=== PATIENT | female | born 1985 | race Caucasian/White ===

== ENCOUNTER 2016-07-10 22:11 | Inpatient (IN) | payer OTHER ==
[~2016-07-10] VITALS: Ht 167.6 cm; Wt 108.1 kg
[2016-07-10] MEDS: MONTELUKAST 10 MG TAB PO SCH (18:00)
[2016-07-10] MEDS: MELOXICAM (MOBIC) 7.5 MG TAB PO SCH (21:00)
[2016-07-10] MEDS: hydrOXYzine 50 MG TAB PO SCH (21:00)
[~2016-07-10 22:11] MED LIST: ADV500INH INH; CELE40TA PO; GABA-283 PO; PRIL20CA9 PO; TOPR50TA PO; TRAZ150T14 PO; VIST50CA PO
[2016-07-10] MEDS ORDERED: GABAPENTIN 300 MG CAP PO ONE (22:45)
[2016-07-10] MEDS ORDERED: FUROSEMIDE 20 MG TAB PO ONE (22:45)
[2016-07-10] MEDS ORDERED: HYDR-4274 PO (22:46)
[2016-07-10] MEDS ORDERED: ALBU17IN INH (22:46)
[2016-07-10] MEDS ORDERED: ENBR50IN4 SUBQ (22:46)
[2016-07-10] MEDS ORDERED: GABA800T PO (22:46)
[2016-07-10] MEDS ORDERED: CLON1TAB PO (22:46)
[2016-07-10] MEDS ORDERED: TRAZ150T14 PO (22:46)
[2016-07-10] MEDS ORDERED: FURO20TA2 PO (22:46)
[2016-07-10] MEDS ORDERED: MONT10TA2 PO (22:46)
[2016-07-10] MEDS ORDERED: MELO7.5T6 PO (22:46)
[2016-07-10] MEDS ORDERED: LORazepam 1 MG TAB PO STA (23:43)
[2016-07-10] MEDS ORDERED: CLON0.5T PO (23:56)
[2016-07-11] MEDS ORDERED: MOM 30ML SUSPENSION UDC PO PRN
[2016-07-11] MEDS ORDERED: MAALOX 30 ML SUSP *UDC PO PRN
[2016-07-11 01:17] VITALS: BP 126/68
[2016-07-11] MEDS: traZODone 50 MG TAB PO SCH ×2 (03:05→20:06)
[2016-07-11] MEDS: NICOTINE POLACRILEX 2 MG GUM PO PRN ×5 (03:36→20:10)
[2016-07-11 06:00] VITALS: BP 133/81
[2016-07-11] MEDS: ADVAIR DISKUS 500/50 INH PWD INH SCH ×2 (08:21→20:06)
[2016-07-11] MEDS: MELOXICAM (MOBIC) 7.5 MG TAB PO SCH ×2 (08:22→20:07)
[2016-07-11] MEDS: hydrOXYzine 50 MG TAB PO SCH ×3 (08:22→20:07)
[2016-07-11] MEDS: FUROSEMIDE 20 MG TAB PO SCH (08:22)
[2016-07-11] MEDS: GABAPENTIN 400 MG CAP PO SCH ×3 (08:22→20:07)
[2016-07-11] MEDS: OMEPRAZOLE 20 MG CAP PO SCH (08:22)
[2016-07-11] MEDS: METOPROLOL SUCC (TopROL XL) 50MG **XL** TAB PO SCH (08:23)
[2016-07-11] MEDS ORDERED: FUROSEMIDE 20 MG TAB PO ONE (09:00)
[2016-07-11] MEDS ORDERED: OMEPRAZOLE 20 MG CAP PO ONE (09:00)
[2016-07-11] MEDS ORDERED: GABAPENTIN 300 MG CAP PO SCH (09:00)
[2016-07-11] MEDS ORDERED: GABAPENTIN 300 MG CAP PO ONE (09:00)
[2016-07-11] MEDS ORDERED: METOPROLOL SUCC (TopROL XL) 50MG **XL** TAB PO ONE (09:00)
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
[2016-07-11] MEDS: OLANZapine 5 MG TAB PO PRN ×2 (12:14→20:07)
[2016-07-11] MEDS: MONTELUKAST 10 MG TAB PO SCH (17:10)
[2016-07-11 18:00] VITALS: BP 126/57
[2016-07-11] MEDS: ACETAMINOPHEN TAB 650MG DOSE (2X325MG) PO PRN (22:03)
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
[2016-07-12 06:07] VITALS: BP 122/62
[2016-07-12] MEDS: ADVAIR DISKUS 500/50 INH PWD INH SCH ×2 (08:05→21:09)
[2016-07-12] MEDS: OMEPRAZOLE 20 MG CAP PO SCH (08:06)
[2016-07-12] MEDS: hydrOXYzine 50 MG TAB PO SCH ×3 (08:06→21:09)
[2016-07-12] MEDS: METOPROLOL SUCC (TopROL XL) 50MG **XL** TAB PO SCH (08:06)
[2016-07-12] MEDS: GABAPENTIN 400 MG CAP PO SCH ×3 (08:06→21:09)
[2016-07-12] MEDS: MELOXICAM (MOBIC) 7.5 MG TAB PO SCH ×2 (08:06→21:09)
[2016-07-12] MEDS: FUROSEMIDE 20 MG TAB PO SCH (08:07)
[2016-07-12] MEDS: ACETAMINOPHEN TAB 650MG DOSE (2X325MG) PO PRN ×2 (08:10→18:04)
[2016-07-12] MEDS: NICOTINE POLACRILEX 2 MG GUM PO PRN ×4 (08:10→21:09)
[2016-07-12] MEDS ORDERED: BACITRACIN OINT 30GM TOP SCH (09:00)
[2016-07-12] MEDS ORDERED: MUPIROCIN 2% OINT 22 GM TUBE TOP PRN (09:30)
[2016-07-12] MEDS: OLANZapine 5 MG TAB PO PRN (15:24)
[2016-07-12] MEDS: MONTELUKAST 10 MG TAB PO SCH (17:10)
[2016-07-12] MEDS: ALBUTEROL 90 MCG/ACT 8GM HFA INHALER INH PRN (18:07)
--- NOTE | 2016-07-12 18:22 | MHIPNPDOC ---
[facility] Progress Note Progress Note DATE OF SERVICE: 07/12/16 HISTORY: Patient is 30-year-old female with history of depression, anxiety, alcohol and marijuana abuse who recently relapsed on alcohol and was transferred from [facility] after she cut her forearm and had been experiencing suicidal ideation. Patient has history of suicide attempt age 14, SIB, says she has not engaged in SIB behavior 3 years until recent episode. Patient indicates alcohol relapse, suicidal thinking, and SIB were preceded by girlfriend of 2 years breaking up with her. Patient has history of prior psychiatric admission and has been receiving outpatient psychiatric treatment through [facility], has participated in rehabilitation treatment 2. [place] Machine Operator met with patient today to assess treatment progress on inpatient unit. Patient rates current anxiety level is 9/10, depression 4/10, denies suicidal and homicidal ideation, denies auditory and visual hallucinations, denies urge to engage in self-injurious behavior. Patient indicates she remains saddened and anxious related to recent termination of relationship noting, "everything reminds me of her," states she has been attending groups, indicates appetite is stable, reports improvement in energy level since admission to unit, denies challenges with concentration and focus. Patient states she struggles with sleep , denies nightmares symptoms, states trazodone helps and denies medication side effects. Patient makes request for increased Librium dose to address "tremor," however, only observed while patient is making request for increase in benzodiazepine dose. Patient is aware she has medication available to her to address symptoms of intermittent anxiety if needed, has been taking intermittently with good effect reported. Patient reports 4/10 pain related to psoriatic arthritis, presents with no signs of acute distress at time of interaction. Patient indicates she has a history of the following diagnoses: Borderline personality disorder, MDD, panic disorder Patient indicates she has lengthy history of psychotropic medication trials, notes the following: Klonopin - has been taking outpatient for panic disorder Celexa - states did best on Celexa but cannot take due to unknown "heart condition," information not found in chart, nursing has been asked to request labs, health history, and EKG from [facility] Effexor - "can't take, bad affect" Prozac - tremor Paxil - "hyper" Depakote - "allergic" Seroquel - memory problems BuSpar, Tenex, Luvox, Serzone - unknown VITAL SIGNS: See below. Patient indicates she has a "heart condition," is asymptomatic, denies chest pain, palpitations, shortness of breath, dizziness, headache NEW TEST RESULTS: Nursing has been asked to request lab work and EKG results from [facility], per EMR lab work was completed at [facility], and patient indicates she underwent EKG the [facility]. MEDICAL HISTORY: Psoriatic arthritis, fibromyalgia, asthma, GERD, IBS, hypertension, self-inflicted wound to forearm, abrasion bilateral to buttocks. Patient indicates she may have UTI, reported urinary frequency and burning to ME who has requested urine culture. Urine culture pending EKG - awaiting [facility] results UDS - awaiting [facility], patient indicates not , notes not sexually active with males CURRENT MEDICATIONS: See below. MENTAL STATUS EXAMINATION: Patient is a 30-year old female, who is engageable, pleasant and cooperative, appears disheveled, dressed in hospital clothing, makes fair eye contact, ambulates with steady gait, appears stated age. Speech: Is of normal rate, rhythm, volume, spontaneous, coherent Language skills are intact Thought processes including: Linear, logical, goal-directed Thought content: Rational, logical, no tangentiality or paranoia noted no perseverative thinking Abstract reasoning, and computation: Appears intact Description of associations: Intact Description of abnormal or psychotic thoughts: Patient denies suicidal or homicidal thinking, denies auditory visual hallucinations, does not appear to be responding to internal stimuli, does not endorse bizarre or paranoid ideation , denies preoccupation with violence and/or obsessions Judgment: Poor Insight: Poor Orientation: A and O 3 Recent and remote memory: Appear intact Attention span and concentration: Appears adequate Language: Adequate Fund of knowledge: Adequate Mood: "I feel better than yesterday but I'm still anxious and sad." Patient appears depressed and anxious, no mood lability noted Affect: Blunted but brightens, congruent with mood DIAGNOSES: Unspecified depressive disorder, rule out MDD, rule out panic disorder, rule out personality disorder rule out substance-induced mood disorder , polysubstance use disorder ASSESSMENT: Patient appears to be adjusting to unit, is pleasant and cooperative , easily engaged, visible, socializing selectively with peers and staff. Patient is participating in unit programming. Patient is requesting medication to address symptoms of depression and anxiety, indicates she has trialed multiple medications but informs typewriter tester she has not taken Zoloft in past. Patient is in agreement with Zoloft trial in effort to reduce symptoms of anxiety and depression. Patient has made request for increased Librium dose, responds well to being informed that she would be monitored for need for dosing adjustment. Patient indicates balance of medication regimen remains generally effective and denies medication side effects. Patient denies current suicidal or homicidal ideation and verbalizes awareness of how to access supportive services on the unit if needed. Will monitor patient's response to medication and will monitor for medication side effects, will evaluate patient's safety, resolution of suicidal ideation and urge to engage in SIB, and discharge readiness. Patient indicates she had been living with her girlfriend prior to hospitalization, may be considering living with brother at time of discharge, adds she intends to return to [facility] for outpatient psychotherapy and medication management services. Recommendation was made for patient to consider participating in inpatient or outpatient substance abuse treatment, patient agrees to consider. MANAGEMENT PLAN: Initiate med trial Zoloft 25 mg po q am. Continue trazodone 150 mg po hs, hydroxyzine 50 mg po TID PRN, olanzapine 5 mg po q 6 hours PRN anxiety/agitation, and Librium 15 mg po BID with plan to taper and discontinue Maintain safety precautions Patient to attend groups and participate in unit programming to develop coping strategies Engage patient in discharge planning process and arrange meeting with support system to ensure safe discharge planning when appropriate Patient to follow up with PCM upon discharge TIME SPENT: 35 minutes. Vital Signs Vital Signs Date Time Temp Pulse Resp B/P (MAP) Pulse Ox O2 Delivery O2 Flow Rate FiO2 07/12/16 08:06 86 122/62 07/12/16 06:07 97.3 16 07/11/16 01:17 98 Room Air Current Medications Current Medications Acetaminophen (Tylenol Tab) 650 mg Q6HP PRN PO HEADACHE or DISCOMFORT Last administered on 07/12/16 08:10; Start 07/11/16 at 00:00; Stop 08/10/16 at 00:00 Al Hydrox/Mg Hydrox/Simethicone (Mylanta) 30 ml Q4HP PRN PO HEARTBURN/ INDIGESTION; Start 07/11/16 at 00:00; Stop 08/10/16 at 00:00 Albuterol Sulfate (Proventil, Ventolin Hfa) 2 puff Q6HP PRN INH SHORTNESS OF BREATH; Start 07/11/16 at 00:00; Stop 08/10/16 at 00:00 Bacitracin (Bacitracin Oint) apply to abrasion ... BID TOP Last administered on 07/12/16 08:11; Start 07/12/16 at 09:00; Stop 07/12/16 at 09:23; Status DC Chlordiazepoxide (Librium) 15 mg BID PO ; Start 07/10/16 at 21:00; Stop at 03:09; Status DC Chlordiazepoxide (Librium) 15 mg BID PO Last administered on 07/12/16 08:06; Start 07/11/16 at 09:00; Stop 07/18/16 at 08:59 Furosemide (Lasix) 10 mg DAILY PO Last administered on 07/12/16 08:07; Start 07/11/16 at 09:00; Stop 08/10/16 at 08:59 Gabapentin (Neurontin) 300 mg TID PO ; Start 07/11/16 at 09:00; Stop 07/11/16 at 09:00; Status DC Gabapentin (Neurontin) 800 mg TID PO Last administered on 07/12/16 15:24; Start 07/11/16 at 09:00; Stop 08/10/16 at 08:59 Home Med (Med Rec Complete!) ASDIRECTED XX ; Start 07/11/16 at 00:00; Stop at 00:03; Status DC Hydroxyzine HCl (Atarax) 50 mg TID PO Last administered on 07/12/16 15:24; Start 07/10/16 at 21:00; Stop 08/09/16 at 20:59 Lorazepam (Ativan) 1 mg STAT STAT PO Last administered on 07/10/16 23:47; Start 07/10/16 at 23:43; Stop 07/10/16 at 23:45; Status DC Magnesium Hydroxide (Milk Of Magnesia) 30 ml DAILYPRN PRN PO CONSTIPATION; Start 07/11/16 at 00:00; Stop 08/10/16 at 00:00 Meloxicam (Mobic) 7.5 mg BID PO Last administered on 07/12/16 08:06; Start at 21:00; Stop 08/09/16 at 20:59 Metoprolol Succinate (TopROL XL) 50 mg DAILY PO Last administered on 07/12/16 08:06; Start 07/11/16 at 09:00; Stop 08/10/16 at 08:59 Miscellaneous (Unresolved Patient Own Med Order) SEE LABEL COMMENTS UNRESOLVED XX ; Start 07/11/16 at 00:01; Stop 08/10/16 at 00:00 Montelukast Sodium (Singulair) 10 mg DAILY@1800 PO Last administered on 17:10; Start 07/10/16 at 18:00; Stop 08/09/16 at 17:59 Mupirocin (Bactroban 2% Ointment) Apply to bilateral buttocks BID PRN TOP REDNESS/IRRITATION; Start 07/12/16 at 09:30; Stop 08/11/16 at 09:29 Nicotine (Nicorette) 4 mg Q2HP PRN PO NICOTINE WITHDRAWAL Last administered on 07/12/16 15:27; Start 07/11/16 at 03:15; Stop 08/10/16 at 03:14 Olanzapine (ZyPREXA) 5 mg Q6HP PRN PO ANXIETY/AGITATION Last administered on 15:24; Start 07/11/16 at 00:00; Stop 08/10/16 at 00:00 Omeprazole (PriLOSEC) 20 mg DAILY PO Last administered on 07/12/16 08:06; Start 07/11/16 at 09:00; Stop 08/10/16 at 08:59 Patient Own Medication (Patient'S Own Med) 1 ea We@0900 SC ; Start 07/13/16 at 09:00; Stop 08/12/16 at 08:59; Status UNV Salmeterol Xinafoate/ Fluticasone (Advair Diskus 500/50) 1 puff BID INH Last administered on 07/12/16 08:05; Start 07/11/16 at 09:00; Stop 08/10/16 at 08:59 Trazodone HCl (Desyrel) 150 mg QHS PO Last administered on 07/11/16 20:06; Start 07/10/16 at 21:00; Stop 08/09/16 at 20:59 Allergies Coded Allergies: Valproic Acid (Verified Allergy, Severe, mouth/throat swelling, 07/10/16) Sulfa Antibiotics (Verified Allergy, Intermediate, body rash, 07/10/16) Vidya Aguirre July 12, 2016 18:22
[2016-07-12 18:23] VITALS: BP 129/89
[2016-07-12] MEDS: SERTRALINE HCL 25 MG TABLET PO SCH (18:53)
[2016-07-12] MEDS: traZODone 50 MG TAB PO SCH (23:40)
[2016-07-13 06:15] VITALS: BP 111/73
[2016-07-13] MEDS: ACETAMINOPHEN TAB 650MG DOSE (2X325MG) PO PRN ×3 (06:34→19:36)
[2016-07-13] MEDS: SERTRALINE HCL 25 MG TABLET PO SCH (08:11)
[2016-07-13] MEDS: METOPROLOL SUCC (TopROL XL) 50MG **XL** TAB PO SCH (08:11)
[2016-07-13] MEDS: ADVAIR DISKUS 500/50 INH PWD INH SCH ×2 (08:11→19:58)
[2016-07-13] MEDS: MELOXICAM (MOBIC) 7.5 MG TAB PO SCH ×2 (08:11→19:59)
[2016-07-13] MEDS: OMEPRAZOLE 20 MG CAP PO SCH (08:11)
[2016-07-13] MEDS: GABAPENTIN 400 MG CAP PO SCH ×3 (08:11→19:59)
[2016-07-13] MEDS: FUROSEMIDE 20 MG TAB PO SCH (08:12)
[2016-07-13] MEDS: hydrOXYzine 50 MG TAB PO SCH ×3 (08:12→19:59)
[2016-07-13] MEDS: NICOTINE POLACRILEX 2 MG GUM PO PRN ×4 (08:12→23:12)
[2016-07-13] MEDS ORDERED: ETANERCEPT 50 MG/ML SC SCH (09:00)
--- NOTE | 2016-07-13 11:54 | MHIPNPDOC ---
[facility] Progress Note Progress Note DATE OF SERVICE: 07/13/16 HISTORY: Patient is 30-year-old female with history of depression, anxiety, alcohol and marijuana abuse who recently relapsed on alcohol and was transferred from [facility] after she cut her forearm and had been experiencing suicidal ideation. Patient has history of suicide attempt age 14, SIB, says she has not engaged in SIB behavior 3 years until recent episode. Patient indicates alcohol relapse, suicidal thinking, and SIB were preceded by girlfriend of 2 years breaking up with her. Patient has history of prior psychiatric admission and has been receiving outpatient psychiatric treatment through [facility], has participated in rehabilitation treatment 2. [employer] met with patient today to assess treatment progress on inpatient unit. Patient reports improvement to symptoms of anxiety and depression, rates current anxiety level as 3/10, depression 2/10, denies suicidal and homicidal ideation, denies auditory and visual hallucinations, denies urge to engage in self-injurious behavior. Patient reports improvement in mood, indicates today she realizes relationship with ex-girlfriend is "over, I'm not trying to contact her anymore, and I realize she needs to do what she needs to do." Patient indicates she has been journaling and connecting with peers on unit, reports appetite is stable, denies challenges with concentration and focus, and reports improvement in energy level. Patient indicates sleep is "good, it's the first time in a long time I slept 8 hours," contrary to EMR which indicates 4.5 hours. Patient denies nightmares symptoms and denies nighttime ruminative thinking. Patient indicates Zoloft is helping to improve mood, denies symptoms of activation/hypomania/sisi, makes no request for increased Librium dose, presents with no indication of hand tremor today. Patient has been utilizing PRN medication to address symptoms of anxiety with good effect reported. Patient denies medication side effects. Patient presents with no signs of acute distress time of interaction. VITALS: See below NEW TEST RESULTS: No new results, review of [facility] records completed. [facility] labs indicated on 07/09/16 elevated WBC, RDW, MPV, low specific gravity. MEDICAL HISTORY: Psoriatic arthritis, fibromyalgia, asthma, GERD, IBS, hypertension, self-inflicted wound to forearm, abrasion bilateral to buttocks. Patient indicates she may have UTI, reported urinary frequency and burning to [place] who has requested urine culture. Urine culture pending 07/10/16 EKG sinus rhythm baseline wander and lead V2, normal ECG. Patient indicates she has history of "heart condition," is asymptomatic, denies symptoms of chest pain, dizziness, headache, shortness of breath, palpitations. UDS - completed 07/09/16 at [facility] negative HCG - completed 07/09/16 at [place] negative Patient indicates she has a "heart condition," is able to provide no additional information, denies history of definitive diagnosis, is asymptomatic, denies chest pain, palpitations, shortness of breath, dizziness, headache CURRENT MEDICATIONS: See below. MENTAL STATUS EXAMINATION: Patient is a 30-year old female, who is engageable, pleasant and cooperative, appears disheveled, dressed in hospital clothing, makes improved eye contact, ambulates with steady gait, appears stated age. Speech: Is of normal rate, rhythm, volume, spontaneous, coherent Language skills are intact Thought processes including: Linear, logical, goal-directed Thought content: Rational, logical, no tangentiality or paranoia noted no perseverative thinking Abstract reasoning, and computation: Appears intact Description of associations: Intact Description of abnormal or psychotic thoughts: Patient denies suicidal or homicidal thinking, denies auditory visual hallucinations, does not appear to be responding to internal stimuli, does not endorse bizarre or paranoid ideation , denies preoccupation with violence and/or obsessions Judgment: Poor Insight: Poor, some improvement verbalized Orientation: A and O 3 Recent and remote memory: Appear intact Attention span and concentration: Appears adequate Language: Adequate Fund of knowledge: Adequate Mood: "I feel a little better today." Patient appears depressed and anxious, no mood lability noted Affect: Blunted but brightens, congruent with mood DIAGNOSES: Unspecified depressive disorder, rule out MDD, rule out panic disorder, rule out personality disorder rule out substance-induced mood disorder , polysubstance use disorder ASSESSMENT: Patient appears to be adjusting to unit, is pleasant and cooperative , easily engaged, visible, socializing selectively with peers and staff. Patient is participating in unit programming. Patient indicates Zoloft seems to be helping reduce symptoms of anxiety and depression, has now taken 2 doses, denies symptoms of activation/sisi, denies medication side effects, is agreeable to dose increase in effort to further reduce symptoms of anxiety and depression. Patient reports notable improvement to sleep, makes no request for increased Librium dose, is agreeable to taper initiation. Patient indicates balance of medication regimen remains generally effective and denies medication side effects. Patient denies current suicidal or homicidal ideation and verbalizes awareness of how to access supportive services on the unit if needed. Will continue to monitor patient's response to medication and will monitor for medication side effects, will evaluate patient's safety, resolution of suicidal ideation and urge to engage in SIB, and discharge readiness. Patient indicates she plans to live with her twin brother when discharged from the hospital, reiterates today she intends to return to [facility] for outpatient psychotherapy and medication management services. Patient notes today she is willing to participate in outpatient substance abuse treatment in [place]. MANAGEMENT PLAN: Increase Zoloft to 50 mg po q am. Continue trazodone 150 mg po hs, hydroxyzine 50 mg po TID PRN, and olanzapine 5 mg po q 6 hours PRN anxiety/ agitation. Reduce Librium to 10 mg po BID tomorrow with plan to continue taper as tolerated by patient and discontinue as patient stabilizes on antidepressant Maintain safety precautions Patient to attend groups and participate in unit programming to develop coping strategies Engage patient in discharge planning process and arrange meeting with support system to ensure safe discharge planning when appropriate Patient to follow up with PCM upon discharge TIME SPENT: 35 minutes. Vital Signs Vital Signs Date Time Temp Pulse Resp B/P (MAP) Pulse Ox O2 Delivery O2 Flow Rate FiO2 07/13/16 08:11 87 111/73 07/13/16 06:15 98.7 18 07/11/16 01:17 98 Room Air Current Medications Current Medications Acetaminophen (Tylenol Tab) 650 mg Q6HP PRN PO HEADACHE or DISCOMFORT Last administered on 07/13/16 06:34; Start 07/11/16 at 00:00; Stop 08/10/16 at 00:00 Al Hydrox/Mg Hydrox/Simethicone (Mylanta) 30 ml Q4HP PRN PO HEARTBURN/ INDIGESTION; Start 07/11/16 at 00:00; Stop 08/10/16 at 00:00 Albuterol Sulfate (Proventil, Ventolin Hfa) 2 puff Q6HP PRN INH SHORTNESS OF BREATH Last administered on 07/12/16 18:07; Start 07/11/16 at 00:00; Stop 08/10 at 00:00 Bacitracin (Bacitracin Oint) apply to abrasion ... BID TOP Last administered on 07/12/16 08:11; Start 07/12/16 at 09:00; Stop 07/12/16 at 09:23; Status DC Chlordiazepoxide (Librium) 15 mg BID PO ; Start 07/10/16 at 21:00; Stop at 03:09; Status DC Chlordiazepoxide (Librium) 15 mg BID PO Last administered on 07/13/16 08:11; Start 07/11/16 at 09:00; Stop 07/18/16 at 08:59 Furosemide (Lasix) 10 mg DAILY PO Last administered on 07/13/16 08:12; Start 07/11/16 at 09:00; Stop 08/10/16 at 08:59 Gabapentin (Neurontin) 300 mg TID PO ; Start 07/11/16 at 09:00; Stop 07/11/16 at 09:00; Status DC Gabapentin (Neurontin) 800 mg TID PO Last administered on 07/13/16 08:11; Start 07/11/16 at 09:00; Stop 08/10/16 at 08:59 Home Med (Med Rec Complete!) ASDIRECTED XX ; Start 07/11/16 at 00:00; Stop at 00:03; Status DC Hydroxyzine HCl (Atarax) 50 mg TID PO Last administered on 07/13/16 08:12; Start 07/10/16 at 21:00; Stop 08/09/16 at 20:59 Lorazepam (Ativan) 1 mg STAT STAT PO Last administered on 07/10/16 23:47; Start 07/10/16 at 23:43; Stop 07/10/16 at 23:45; Status DC Magnesium Hydroxide (Milk Of Magnesia) 30 ml DAILYPRN PRN PO CONSTIPATION; Start 07/11/16 at 00:00; Stop 08/10/16 at 00:00 Meloxicam (Mobic) 7.5 mg BID PO Last administered on 07/13/16 08:11; Start at 21:00; Stop 08/09/16 at 20:59 Metoprolol Succinate (TopROL XL) 50 mg DAILY PO Last administered on 07/13/16 08:11; Start 07/11/16 at 09:00; Stop 08/10/16 at 08:59 Miscellaneous (Unresolved Patient Own Med Order) SEE LABEL COMMENTS UNRESOLVED XX ; Start 07/11/16 at 00:01; Stop 08/10/16 at 00:00 Montelukast Sodium (Singulair) 10 mg DAILY@1800 PO Last administered on 17:10; Start 07/10/16 at 18:00; Stop 08/09/16 at 17:59 Mupirocin (Bactroban 2% Ointment) Apply to bilateral buttocks BID PRN TOP REDNESS/IRRITATION Last administered on 07/13/16 08:15; Start 07/12/16 at 09:30 ; Stop 08/11/16 at 09:29 Nicotine (Nicorette) 4 mg Q2HP PRN PO NICOTINE WITHDRAWAL Last administered on 07/13/16 08:12; Start 07/11/16 at 03:15; Stop 08/10/16 at 03:14 Olanzapine (ZyPREXA) 5 mg Q6HP PRN PO ANXIETY/AGITATION Last administered on 15:24; Start 07/11/16 at 00:00; Stop 08/10/16 at 00:00 Omeprazole (PriLOSEC) 20 mg DAILY PO Last administered on 07/13/16 08:11; Start 07/11/16 at 09:00; Stop 08/10/16 at 08:59 Patient Own Medication (Patient'S Own Med) 1 ea We@0900 SC ; Start 07/13/16 at 09:00; Stop 08/12/16 at 08:59; Status UNV Salmeterol Xinafoate/ Fluticasone (Advair Diskus 500/50) 1 puff BID INH Last administered on 07/13/16 08:11; Start 07/11/16 at 09:00; Stop 08/10/16 at 08:59 Sertraline HCl (Zoloft) 25 mg QAM PO Last administered on 07/13/16 08:11; Start 07/12/16 at 09:00; Stop 08/11/16 at 08:59 Trazodone HCl (Desyrel) 150 mg QHS PO Last administered on 07/12/16t 23:40; Start 07/10/16 at 21:00; Stop 08/09/16 at 20:59 Allergies Coded Allergies: Valproic Acid (Verified Allergy, Severe, mouth/throat swelling, 07/10/16) Sulfa Antibiotics (Verified Allergy, Intermediate, body rash, 07/10/16) Vidya Aguirre July 13, 2016 11:54
[2016-07-13] MEDS: OLANZapine 5 MG TAB PO PRN (13:33)
[2016-07-13] MEDS: MONTELUKAST 10 MG TAB PO SCH (17:17)
[2016-07-13 18:54] VITALS: BP 106/70
[2016-07-13] MEDS: traZODone 50 MG TAB PO SCH (23:11)
[2016-07-13] MEDS: LIDOCAINE 5% (LIDODERM) PATCH TD SCH (23:16)
[2016-07-14] MEDS: ACETAMINOPHEN TAB 650MG DOSE (2X325MG) PO PRN ×2 (05:34→11:48)
[2016-07-14 06:17] VITALS: BP 121/56
[2016-07-14] MEDS: ADVAIR DISKUS 500/50 INH PWD INH SCH ×2 (08:25→21:50)
[2016-07-14] MEDS: FUROSEMIDE 20 MG TAB PO SCH (08:25)
[2016-07-14] MEDS: SERTRALINE HCL 50 MG TAB PO SCH (08:26)
[2016-07-14] MEDS: GABAPENTIN 400 MG CAP PO SCH ×3 (08:26→21:51)
[2016-07-14] MEDS: OMEPRAZOLE 20 MG CAP PO SCH (08:26)
[2016-07-14] MEDS: hydrOXYzine 50 MG TAB PO SCH ×3 (08:26→21:51)
[2016-07-14] MEDS: MELOXICAM (MOBIC) 7.5 MG TAB PO SCH ×2 (08:26→21:51)
[2016-07-14] MEDS: METOPROLOL SUCC (TopROL XL) 50MG **XL** TAB PO SCH (08:26)
[2016-07-14] MEDS: **NOTE PATIENT COMMENT** MISC XX SCH (08:26)
[2016-07-14] MEDS: NICOTINE POLACRILEX 2 MG GUM PO PRN ×3 (08:29→21:50)
[2016-07-14] MEDS: OLANZapine 5 MG TAB PO PRN ×2 (14:30→21:51)
[2016-07-14] MEDS: MONTELUKAST 10 MG TAB PO SCH (17:07)
[2016-07-14 18:00] VITALS: BP 124/68
[2016-07-14] MEDS: LIDOCAINE 5% (LIDODERM) PATCH TD SCH (21:51)
[2016-07-14] MEDS: traZODone 50 MG TAB PO SCH (21:51)
--- NOTE | 2016-07-14 22:15 | MHIPNPDOC ---
[facility] Progress Note Progress Note DATE OF SERVICE: 07/14/16 HISTORY: Patient is 30-year-old female with history of depression, anxiety, alcohol and marijuana abuse who recently relapsed on alcohol and was transferred from [facility] after she cut her forearm and had been experiencing suicidal ideation. Patient has history of suicide attempt age 14, SIB, says she has not engaged in SIB behavior 3 years until recent episode. Patient indicates alcohol relapse, suicidal thinking, and SIB were preceded by girlfriend of 2 years breaking up with her. Patient has history of prior psychiatric admission and has been receiving outpatient psychiatric treatment through [facility], has participated in rehabilitation treatment 2. [employer] met with patient today to assess treatment progress on inpatient unit. Patient reports improvement to symptoms of anxiety and depression, rates current anxiety level as 4/10 related to "thinking about my ask," depression / 10, denies suicidal and homicidal ideation, denies auditory and visual hallucinations, denies urge to engage in self-injurious behavior. Patient reports improvement in mood which she attributes to antidepressant, denies medication side effects. Patient reports appetite is stable, denies challenges with concentration and focus, and reports improvement in energy level. Patient describes sleep as "good," on further to EMR, states she has been sleeping well and denies nightmares symptoms and denies nighttime ruminative thinking. Patient indicates Zoloft continues to help improve mood, denies symptoms of activation/hypomania/sisi. Patient remains in agreement with a Librium taper, presents with no indication of hand tremor today. Patient has been utilizing PRN medication to address symptoms of anxiety with good effect reported. Patient denies medication side effects. Patient presents with no signs of acute distress time of interaction. VITALS: See below NEW TEST RESULTS: No new results, review of [facility] records completed. [facility] labs indicated on 07/09/16 elevated WBC, RDW, MPV, low specific gravity. MEDICAL HISTORY: Psoriatic arthritis, fibromyalgia, asthma, GERD, IBS, hypertension, self-inflicted wound to forearm, abrasion bilateral to buttocks. Patient indicates she may have UTI, reported urinary frequency and burning to [place] who has requested urine culture. Urine culture pending 07/10/16 EKG sinus rhythm baseline wander and lead V2, normal ECG. Patient indicates she has history of "heart condition," is asymptomatic, denies symptoms of chest pain, dizziness, headache, shortness of breath, palpitations. UDS - completed 07/09/16 at [facility] negative HCG - completed 07/09/16 at [place] [facility] negative Patient indicates she has a "heart condition," is able to provide no additional information, denies history of definitive diagnosis, is asymptomatic, denies chest pain, palpitations, shortness of breath, dizziness, headache CURRENT MEDICATIONS: See below. MENTAL STATUS EXAMINATION: Patient is a 30-year old female, who is engageable, pleasant and cooperative, appears less disheveled, dressed in hospital clothing, makes improved eye contact, ambulates with steady gait, appears stated age. Speech: Is of normal rate, rhythm, volume, spontaneous, coherent Language skills are intact Thought processes including: Linear, logical, goal-directed Thought content: Rational, logical, no tangentiality or paranoia noted no perseverative thinking Abstract reasoning, and computation: Appears intact Description of associations: Intact Description of abnormal or psychotic thoughts: Patient denies suicidal or homicidal thinking, denies auditory visual hallucinations, does not appear to be responding to internal stimuli, does not endorse bizarre or paranoid ideation , denies preoccupation with violence and/or obsessions Judgment: Limited, some improvement during treatment Insight: Fair, some improvement verbalized Orientation: A and O 3 Recent and remote memory: Appear intact Attention span and concentration: Appears adequate Language: Adequate Fund of knowledge: Adequate Mood: "I'm feeling a little better today, less depressed but I'm still anxious. " Patient appears less depressed and anxious, no mood lability noted Affect: Blunted but brightens, congruent with mood DIAGNOSES: Unspecified depressive disorder, rule out MDD, rule out panic disorder, rule out personality disorder rule out substance-induced mood disorder , polysubstance use disorder ASSESSMENT: Patient appears to be adjusting to unit, is pleasant and cooperative , easily engaged, visible, socializing selectively with peers and staff. Patient is participating in unit programming. Patient indicates Zoloft continues to help reduce symptoms of anxiety and depression, denies symptoms of activation/sisi, denies medication side effects. Patient reports notable improvement to sleep. Patient remains in agreement with Librium taper, reiterates today balance of medication regimen remains generally effective and denies medication side effects. Patient denies current suicidal or homicidal ideation and verbalizes awareness of how to access supportive services on the unit if needed. Will continue to monitor patient's response to medication and will monitor for medication side effects, will evaluate patient's safety, resolution of suicidal ideation and urge to engage in SIB, and discharge readiness. Patient indicates she plans to live with her twin brother when discharged from the hospital, reiterates today she intends to return to [facility] for outpatient psychotherapy and medication management services. Patient notes today she is willing to participate in outpatient substance abuse treatment in [place]. MANAGEMENT PLAN: Continue Zoloft to 50 mg po q am, trazodone 150 mg po hs, hydroxyzine 50 mg po TID PRN, and olanzapine 5 mg po q 6 hours PRN anxiety/ agitation. Reduce Librium to 5 mg po q and 10 mg po q hs with plan to continue taper as tolerated by patient and discontinue as patient stabilizes on antidepressant Maintain safety precautions Patient to attend groups and participate in unit programming to develop coping strategies Engage patient in discharge planning process and arrange meeting with support system to ensure safe discharge planning when appropriate Patient to follow up with PCM upon discharge TIME SPENT: 35 minutes. Vital Signs Vital Signs Date Time Temp Pulse Resp B/P (MAP) Pulse Ox O2 Delivery O2 Flow Rate FiO2 07/14/16 18:00 98.6 79 18 124/68 (86) 07/14/16 06:17 Room Air 07/11/16 01:17 98 Current Medications Current Medications Acetaminophen (Tylenol Tab) 650 mg Q6HP PRN PO HEADACHE or DISCOMFORT Last administered on 07/14/16 11:48; Start 07/11/16 at 00:00; Stop 08/10/16 at 00:00 Al Hydrox/Mg Hydrox/Simethicone (Mylanta) 30 ml Q4HP PRN PO HEARTBURN/ INDIGESTION; Start 07/11/16 at 00:00; Stop 08/10/16 at 00:00 Albuterol Sulfate (Proventil, Ventolin Hfa) 2 puff Q6HP PRN INH SHORTNESS OF BREATH Last administered on 07/12/16 18:07; Start 07/11/16 at 00:00; Stop 08/10 at 00:00 Bacitracin (Bacitracin Oint) apply to abrasion ... BID TOP Last administered on 07/12/16 08:11; Start 07/12/16 at 09:00; Stop 07/12/16 at 09:23; Status DC Chlordiazepoxide (Librium) 5 mg QAM PO ; Start 07/15/16 at 09:00; Stop 07/22/16 at 08:59 Chlordiazepoxide (Librium) 10 mg BID PO Last administered on 07/14/16 21:50; Start 07/14/16 at 09:00; Stop 07/14/16 at 22:04; Status DC Chlordiazepoxide (Librium) 10 mg QHS PO ; Start 07/15/16 at 21:00; Stop 07/21/16 at 08:59 Chlordiazepoxide (Librium) 15 mg BID PO ; Start 07/10/16 at 21:00; Stop at 03:09; Status DC Chlordiazepoxide (Librium) 15 mg BID PO Last administered on 07/13/16 19:59; Start 07/11/16 at 09:00; Stop 07/13/16 at 23:00; Status DC Furosemide (Lasix) 10 mg DAILY PO Last administered on 07/14/16 08:25; Start at 09:00; Stop 08/10/16 at 08:59 Gabapentin (Neurontin) 300 mg TID PO ; Start 07/11/16 at 09:00; Stop 07/11/16 at 09:00; Status DC Gabapentin (Neurontin) 800 mg TID PO Last administered on 07/14/16 21:51; Start 07/11/16 at 09:00; Stop 08/10/16 at 08:59 Home Med (Med Rec Complete!) ASDIRECTED XX ; Start 07/11/16 at 00:00; Stop at 00:03; Status DC Hydroxyzine HCl (Atarax) 50 mg TID PO Last administered on 07/14/16 21:51; Start 07/10/16 at 21:00; Stop 08/09/16 at 20:59 Lidocaine (Lidoderm Patch) 1 patch DAILY@2100 TD Last administered on 07/14/16 21:51; Start 07/13/16 at 21:00; Stop 08/12/16 at 20:59 Lorazepam (Ativan) 1 mg STAT STAT PO Last administered on 07/10/16 23:47; Start 07/10/16 at 23:43; Stop 07/10/16 at 23:45; Status DC Magnesium Hydroxide (Milk Of Magnesia) 30 ml DAILYPRN PRN PO CONSTIPATION; Start 07/11/16 at 00:00; Stop 08/10/16 at 00:00 Meloxicam (Mobic) 7.5 mg BID PO Last administered on 07/14/16 21:51; Start at 21:00; Stop 08/09/16 at 20:59 Metoprolol Succinate (TopROL XL) 50 mg DAILY PO Last administered on 07/14/16 08:26; Start 07/11/16 at 09:00; Stop 08/10/16 at 08:59 Miscellaneous (Unresolved Patient Own Med Order) SEE LABEL COMMENTS UNRESOLVED XX ; Start 07/11/16 at 00:01; Stop 08/10/16 at 00:00 Montelukast Sodium (Singulair) 10 mg DAILY@1800 PO Last administered on 17:07; Start 07/10/16 at 18:00; Stop 08/09/16 at 17:59 Mupirocin (Bactroban 2% Ointment) Apply to bilateral buttocks BID PRN TOP REDNESS/IRRITATION Last administered on 07/13/16 08:15; Start 07/12/16 at 09:30 ; Stop 08/11/16 at 09:29 Nicotine (Nicorette) 4 mg Q2HP PRN PO NICOTINE WITHDRAWAL Last administered on 07/14/16 21:50; Start 07/11/16 at 03:15; Stop 08/10/16 at 03:14 Non-Formulary Medication ( See Comment Field Below ) REMOVE LIDODERM PATCH DAILY@0900 XX Last administered on 07/14/16 08:26; Start 07/14/16 at 09:00; Stop 08/13/16 at 08:59 Olanzapine (ZyPREXA) 5 mg Q6HP PRN PO ANXIETY/AGITATION Last administered on 21:51; Start 07/11/16 at 00:00; Stop 08/10/16 at 00:00 Omeprazole (PriLOSEC) 20 mg DAILY PO Last administered on 07/14/16 08:26; Start 07/11/16 at 09:00; Stop 08/10/16 at 08:59 Patient Own Medication (Patient'S Own Med) 1 ea We@0900 SC ; Start 07/13/16 at 09:00; Stop 08/12/16 at 08:59; Status UNV Salmeterol Xinafoate/ Fluticasone (Advair Diskus 500/50) 1 puff BID INH Last administered on 07/14/16 21:50; Start 07/11/16 at 09:00; Stop 08/10/16 at 08:59 Sertraline HCl (Zoloft) 25 mg QAM PO Last administered on 07/13/16 08:11; Start 07/12/16 at 09:00; Stop 07/13/16 at 11:58; Status DC Sertraline HCl (Zoloft) 50 mg QAM PO Last administered on 07/14/16 08:26; Start 07/14/16 at 09:00; Stop 08/13/16 at 08:59 Trazodone HCl (Desyrel) 150 mg QHS PO Last administered on 07/14/16 21:51; Start 07/10/16 at 21:00; Stop 08/09/16 at 20:59 Allergies Coded Allergies: Valproic Acid (Verified Allergy, Severe, mouth/throat swelling, 07/10/16) Sulfa Antibiotics (Verified Allergy, Intermediate, body rash, 07/10/16) Vidya Aguirre Jul 14, 2016 22:15
[2016-07-15] MEDS: NICOTINE POLACRILEX 2 MG GUM PO PRN ×4 (01:48→20:11)
[2016-07-15] MEDS: ACETAMINOPHEN TAB 650MG DOSE (2X325MG) PO PRN ×3 (01:51→22:06)
[2016-07-15 06:00] VITALS: BP 123/62
[2016-07-15] MEDS: **NOTE PATIENT COMMENT** MISC XX SCH (08:36)
[2016-07-15] MEDS: hydrOXYzine 50 MG TAB PO SCH ×3 (08:40→20:11)
[2016-07-15] MEDS: OMEPRAZOLE 20 MG CAP PO SCH (08:40)
[2016-07-15] MEDS: MELOXICAM (MOBIC) 7.5 MG TAB PO SCH ×2 (08:40→20:11)
[2016-07-15] MEDS: SERTRALINE HCL 50 MG TAB PO SCH (08:40)
[2016-07-15] MEDS: GABAPENTIN 400 MG CAP PO SCH ×3 (08:41→20:11)
[2016-07-15] MEDS: METOPROLOL SUCC (TopROL XL) 50MG **XL** TAB PO SCH (08:42)
[2016-07-15] MEDS: FUROSEMIDE 20 MG TAB PO SCH (08:43)
[2016-07-15] MEDS: ADVAIR DISKUS 500/50 INH PWD INH SCH ×2 (08:46→20:10)
[2016-07-15] MEDS: OLANZapine 5 MG TAB PO PRN ×2 (12:33→22:05)
[2016-07-15 18:00] VITALS: BP 114/56
[2016-07-15] MEDS: MONTELUKAST 10 MG TAB PO SCH (18:11)
--- NOTE | 2016-07-15 19:07 | MHIPNPDOC ---
[facility] Progress Note Progress Note DATE OF SERVICE: 07/15/16 HISTORY: Patient is 30-year-old female with history of depression, anxiety, alcohol and marijuana abuse who recently relapsed on alcohol and was transferred from [facility] after she cut her forearm and had been experiencing suicidal ideation. Patient has history of suicide attempt age 14, SIB, says she has not engaged in SIB behavior 3 years until recent episode. Patient indicates alcohol relapse, suicidal thinking, and SIB were preceded by girlfriend of 2 years breaking up with her. Patient has history of prior psychiatric admission and has been receiving outpatient psychiatric treatment through [facility], has participated in rehabilitation treatment 2. Layboy Tender met with patient today to assess treatment progress on inpatient unit. Patient reports improvement to symptoms of anxiety and depression stating, "I feel better, almost happy, I haven't cried about my ex-girlfriend in a couple days now." Patient reports current anxiety level of 1/10, depression 1/10, denies suicidal and homicidal ideation, denies auditory and visual hallucinations, denies urge to engage in self-injurious behavior. Patient indicates Zoloft is helping to improve mood and she denies medication side effects. Patient states appetite is stable, denies challenges with concentration and focus, and reports improvement in energy level. Patient describes sleep as "good," contrary to EMR which patient states is an accurate, notes trazodone remains effective and she denies nightmares and ruminative thinking. Patient denies symptoms of activation/hypomania/sisi, remains in agreement with continuation of Librium taper. Patient has been made aware that if she becomes uncomfortable over weekend as result of Librium taper she may ask to meet with weekend provider to reevaluate taper needs. Patient has been utilizing anxiolytic medication to address symptoms of anxiety with good effect reported. Patient presents with no signs of acute distress time of interaction. VITALS: See below NEW TEST RESULTS: No new results, review of [facility] records completed. [facility] labs indicated on 07/09/16 elevated WBC, RDW, MPV, low specific gravity. MEDICAL HISTORY: Psoriatic arthritis, fibromyalgia, asthma, GERD, IBS, hypertension, self-inflicted wound to forearm, abrasion bilateral to buttocks. Patient indicates she may have UTI, reported urinary frequency and burning to PR who has requested urine culture. Urine culture pending 07/10/16 EKG sinus rhythm baseline wander and lead V2, normal ECG. Patient indicates she has history of "heart condition," is asymptomatic, denies symptoms of chest pain, dizziness, headache, shortness of breath, palpitations. UDS - completed 07/09/16 at [facility] [place] negative HCG - completed 07/09/16 at [place] negative Patient indicates she has a "heart condition," is able to provide no additional information, denies history of definitive diagnosis, is asymptomatic, denies chest pain, palpitations, shortness of breath, dizziness, headache CURRENT MEDICATIONS: See below. MENTAL STATUS EXAMINATION: Patient is a 30-year old female, who is engageable, pleasant and cooperative, appears less disheveled, dressed in hospital clothing, makes improved eye contact, ambulates with steady gait, appears stated age. Speech: Is of normal rate, rhythm, volume, spontaneous, coherent Language skills are intact Thought processes including: Linear, logical, goal-directed Thought content: Rational, logical, no tangentiality or paranoia noted no perseverative thinking Abstract reasoning, and computation: Appears intact Description of associations: Intact Description of abnormal or psychotic thoughts: Patient denies suicidal or homicidal thinking, denies auditory visual hallucinations, does not appear to be responding to internal stimuli, does not endorse bizarre or paranoid ideation , denies preoccupation with violence and/or obsessions Judgment: Fair, some improvement during treatment Insight: Fair, some improvement verbalized Orientation: A and O 3 Recent and remote memory: Appear intact Attention span and concentration: Appears adequate Language: Adequate Fund of knowledge: Adequate Mood: "I'm feeling better today, the medication is helping." Patient appears less depressed and less anxious, no mood lability noted Affect: Constricted, brightens at times, expresses humor, congruent with mood DIAGNOSES: Major depressive disorder, recurrent, moderate, polysubstance use disorder. Rule out panic disorder, rule out borderline personality disorder, rule out substance-induced mood disorder ASSESSMENT: Patient continues to adjust to unit, is more visible and engageable , is pleasant and cooperative, socializing more with staff and peers, participating in unit programming. Patient indicates Zoloft continues to help reduce symptoms of anxiety and depression, denies symptoms of activation/sisi , denies medication side effects. Patient reports notable improvement to sleep. Patient remains in agreement with Librium taper, reiterates today balance of medication regimen remains effective and denies medication side effects. Patient denies current suicidal or homicidal ideation and verbalizes awareness of how to access supportive services on the unit if needed. Will continue librium taper and continue to monitor patient's response to taper and medications, and will monitor for medication side effects. In addition, will evaluate patient's safety, resolution of suicidal ideation and urge to engage in SIB, and discharge readiness. Patient indicates she plans to live with her twin brother when discharged from the hospital, reiterates today she intends to return to [facility] for outpatient psychotherapy and medication management services. Patient notes today she is willing to participate in outpatient substance abuse treatment in [place]. MANAGEMENT PLAN: Continue Zoloft to 50 mg po q am, trazodone 150 mg po hs, hydroxyzine 50 mg po TID PRN, and olanzapine 5 mg po q 6 hours PRN anxiety/ agitation. Continue Librium taper as follows: Librium 5 mg po this am and Librium 10 mg po hs tonight. Librium 10 mg po hs on 07/16/16. Librium 5 mg po hs on 07/17/16, then stop if tolerated by patient. Patient to request to be seen by weekend provider if experiencing difficulty with Librium taper over weekend Maintain safety precautions Patient to attend groups and participate in unit programming to develop coping strategies Engage patient in discharge planning process and arrange meeting with support system to ensure safe discharge planning when appropriate Patient to follow up with PCM upon discharge TIME SPENT: 35 minutes. Vital Signs Vital Signs Date Time Temp Pulse Resp B/P (MAP) Pulse Ox O2 Delivery O2 Flow Rate FiO2 07/15/16 18:00 98.8 78 18 114/56 (75) 07/14/16 06:17 Room Air 07/11/16 01:17 98 Current Medications Current Medications Acetaminophen (Tylenol Tab) 650 mg Q6HP PRN PO HEADACHE or DISCOMFORT Last administered on 07/15/16t 10:38; Start 07/11/16 at 00:00; Stop 08/10/16 at 00:00 Al Hydrox/Mg Hydrox/Simethicone (Mylanta) 30 ml Q4HP PRN PO HEARTBURN/ INDIGESTION; Start 07/11/16 at 00:00; Stop 08/10/16 at 00:00 Albuterol Sulfate (Proventil, Ventolin Hfa) 2 puff Q6HP PRN INH SHORTNESS OF BREATH Last administered on 07/12/16 18:07; Start 07/11/16 at 00:00; Stop 08/10 at 00:00 Bacitracin (Bacitracin Oint) apply to abrasion ... BID TOP Last administered on 07/12/16 08:11; Start 07/12/16 at 09:00; Stop 07/12/16 at 09:23; Status DC Chlordiazepoxide (Librium) 5 mg QAM PO Last administered on 07/15/16 08:41; Start 07/15/16 at 09:00; Stop 07/15/16 at 18:45; Status DC Chlordiazepoxide (Librium) 5 mg QHS PO ; Start 07/17/16 at 21:00; Stop 07/17/16 at 22:00 Chlordiazepoxide (Librium) 10 mg BID PO Last administered on 07/14/16 21:50; Start 07/14/16 at 09:00; Stop 07/14/16 at 22:04; Status DC Chlordiazepoxide (Librium) 10 mg QHS PO ; Start 07/15/16 at 21:00; Stop 07/15/16 at 22:00 Chlordiazepoxide (Librium) 10 mg QHS PO ; Start 07/16/16 at 21:00; Stop 07/16/16 at 22:00 Chlordiazepoxide (Librium) 15 mg BID PO ; Start 07/10/16 at 21:00; Stop at 03:09; Status DC Chlordiazepoxide (Librium) 15 mg BID PO Last administered on 07/13/16 19:59; Start 07/11/16 at 09:00; Stop 07/13/16 at 23:00; Status DC Furosemide (Lasix) 10 mg DAILY PO Last administered on 07/15/16 08:43; Start at 09:00; Stop 08/10/16 at 08:59 Gabapentin (Neurontin) 300 mg TID PO ; Start 07/11/16 at 09:00; Stop 07/11/16 at 09:00; Status DC Gabapentin (Neurontin) 800 mg TID PO Last administered on 07/15/16 16:14; Start 07/11/16 at 09:00; Stop 08/10/16 at 08:59 Home Med (Med Rec Complete!) ASDIRECTED XX ; Start 07/11/16 at 00:00; Stop at 00:03; Status DC Hydroxyzine HCl (Atarax) 50 mg TID PO Last administered on 07/15/16 16:14; Start 07/10/16 at 21:00; Stop 08/09/16 at 20:59 Lidocaine (Lidoderm Patch) 1 patch DAILY@2100 TD Last administered on 07/14/16 21:51; Start 07/13/16 at 21:00; Stop 08/12/16 at 20:59 Lorazepam (Ativan) 1 mg STAT STAT PO Last administered on 07/10/16 23:47; Start 07/10/16 at 23:43; Stop 07/10/16 at 23:45; Status DC Magnesium Hydroxide (Milk Of Magnesia) 30 ml DAILYPRN PRN PO CONSTIPATION; Start 07/11/16 at 00:00; Stop 08/10/16 at 00:00 Meloxicam (Mobic) 7.5 mg BID PO Last administered on 07/15/16 08:40; Start at 21:00; Stop 08/09/16 at 20:59 Metoprolol Succinate (TopROL XL) 50 mg DAILY PO Last administered on 07/15/16 08:42; Start 07/11/16 at 09:00; Stop 08/10/16 at 08:59 Miscellaneous (Unresolved Patient Own Med Order) SEE LABEL COMMENTS UNRESOLVED XX ; Start 07/11/16 at 00:01; Stop 07/15/16 at 07:52; Status DC Montelukast Sodium (Singulair) 10 mg DAILY@1800 PO Last administered on 18:11; Start 07/10/16 at 18:00; Stop 08/09/16 at 17:59 Mupirocin (Bactroban 2% Ointment) Apply to bilateral buttocks BID PRN TOP REDNESS/IRRITATION Last administered on 07/13/16 08:15; Start 07/12/16 at 09:30 ; Stop 08/11/16 at 09:29 Nicotine (Nicorette) 4 mg Q2HP PRN PO NICOTINE WITHDRAWAL Last administered on 07/15/16 10:38; Start 07/11/16 at 03:15; Stop 08/10/16 at 03:14 Non-Formulary Medication ( See Comment Field Below ) REMOVE LIDODERM PATCH DAILY@0900 XX Last administered on 07/15/16 08:36; Start 07/14/16 at 09:00; Stop 08/13/16 at 08:59 Olanzapine (ZyPREXA) 5 mg Q6HP PRN PO ANXIETY/AGITATION Last administered on 12:33; Start 07/11/16 at 00:00; Stop 08/10/16 at 00:00 Omeprazole (PriLOSEC) 20 mg DAILY PO Last administered on 07/15/16 08:40; Start 07/11/16 at 09:00; Stop 08/10/16 at 08:59 Patient Own Medication (Patient'S Own Med) 1 ea We@0900 SC ; Start 07/13/16 at 09:00; Stop 07/15/16 at 07:52; Status DC Salmeterol Xinafoate/ Fluticasone (Advair Diskus 500/50) 1 puff BID INH Last administered on 07/15/16 08:46; Start 07/11/16 at 09:00; Stop 08/10/16 at 08:59 Sertraline HCl (Zoloft) 25 mg QAM PO Last administered on 07/13/16 08:11; Start 07/12/16 at 09:00; Stop 07/13/16 at 11:58; Status DC Sertraline HCl (Zoloft) 50 mg QAM PO Last administered on 07/15/16 08:40; Start 07/14/16 at 09:00; Stop 08/13/16 at 08:59 Trazodone HCl (Desyrel) 150 mg QHS PO Last administered on 07/14/16 21:51; Start 07/10/16 at 21:00; Stop 08/09/16 at 20:59 Allergies Coded Allergies: Valproic Acid (Verified Allergy, Severe, mouth/throat swelling, 07/10/16) Sulfa Antibiotics (Verified Allergy, Intermediate, body rash, 07/10/16) Paroxetine (Unverified Adverse Reaction, Intermediate, Akathesia, 07/15/16) Quetiapine (Verified Adverse Reaction, Unknown, amnesia, 07/15/16) Patient report Vidya Aguirre Jul 15, 2016 19:07
[2016-07-15] MEDS: LIDOCAINE 5% (LIDODERM) PATCH TD SCH (20:13)
[2016-07-15] MEDS: traZODone 50 MG TAB PO SCH (22:05)
[2016-07-16 06:10] VITALS: BP 100/64
[2016-07-16] MEDS: **NOTE PATIENT COMMENT** MISC XX SCH (08:10)
[2016-07-16] MEDS: FUROSEMIDE 20 MG TAB PO SCH (08:14)
[2016-07-16] MEDS: ADVAIR DISKUS 500/50 INH PWD INH SCH ×2 (08:14→21:20)
[2016-07-16] MEDS: METOPROLOL SUCC (TopROL XL) 50MG **XL** TAB PO SCH (08:14)
[2016-07-16] MEDS: OMEPRAZOLE 20 MG CAP PO SCH (08:14)
[2016-07-16] MEDS: MELOXICAM (MOBIC) 7.5 MG TAB PO SCH ×2 (08:14→21:22)
[2016-07-16] MEDS: SERTRALINE HCL 50 MG TAB PO SCH (08:14)
[2016-07-16] MEDS: GABAPENTIN 400 MG CAP PO SCH ×3 (08:14→21:21)
[2016-07-16] MEDS: hydrOXYzine 50 MG TAB PO SCH ×3 (08:14→21:21)
[2016-07-16] MEDS: ALBUTEROL 90 MCG/ACT 8GM HFA INHALER INH PRN ×2 (08:15→21:20)
[2016-07-16] MEDS: ACETAMINOPHEN TAB 650MG DOSE (2X325MG) PO PRN ×2 (11:36→18:03)
[2016-07-16] MEDS: NICOTINE POLACRILEX 2 MG GUM PO PRN ×3 (11:36→21:22)
[2016-07-16] MEDS: OLANZapine 5 MG TAB PO PRN ×2 (12:04→21:22)
[2016-07-16] MEDS: MONTELUKAST 10 MG TAB PO SCH (18:03)
[2016-07-16 18:17] VITALS: BP 132/70
[2016-07-16] MEDS: LIDOCAINE 5% (LIDODERM) PATCH TD SCH (21:21)
[2016-07-16] MEDS: traZODone 50 MG TAB PO SCH (21:22)
[2016-07-17 06:00] VITALS: BP 122/74
[2016-07-17] MEDS: **NOTE PATIENT COMMENT** MISC XX SCH (08:05)
[2016-07-17] MEDS: OMEPRAZOLE 20 MG CAP PO SCH (08:08)
[2016-07-17] MEDS: MELOXICAM (MOBIC) 7.5 MG TAB PO SCH ×2 (08:08→20:56)
[2016-07-17] MEDS: GABAPENTIN 400 MG CAP PO SCH ×3 (08:08→20:56)
[2016-07-17] MEDS: SERTRALINE HCL 50 MG TAB PO SCH (08:08)
[2016-07-17] MEDS: ADVAIR DISKUS 500/50 INH PWD INH SCH ×2 (08:08→20:56)
[2016-07-17] MEDS: hydrOXYzine 50 MG TAB PO SCH ×3 (08:08→20:56)
[2016-07-17] MEDS: FUROSEMIDE 20 MG TAB PO SCH (08:09)
[2016-07-17] MEDS: METOPROLOL SUCC (TopROL XL) 50MG **XL** TAB PO SCH (08:10)
[2016-07-17] MEDS: NICOTINE POLACRILEX 2 MG GUM PO PRN ×6 (08:12→23:53)
[2016-07-17] MEDS: ACETAMINOPHEN TAB 650MG DOSE (2X325MG) PO PRN ×2 (08:47→18:05)
[2016-07-17] MEDS: OLANZapine 5 MG TAB PO PRN ×2 (10:19→23:54)
[2016-07-17] MEDS ORDERED: SODIUM CHLORIDE NASAL 0.65% SPRAY BTL (OCEAN) PRN (12:30)
[2016-07-17 18:00] VITALS: BP 103/60
[2016-07-17] MEDS: MONTELUKAST 10 MG TAB PO SCH (18:04)
[2016-07-17] MEDS: traZODone 50 MG TAB PO SCH (21:22)
[2016-07-17] MEDS: LIDOCAINE 5% (LIDODERM) PATCH TD SCH (21:23)
[2016-07-18 06:29] VITALS: BP 107/54
[2016-07-18] MEDS: ALBUTEROL 90 MCG/ACT 8GM HFA INHALER INH PRN (07:11)
[2016-07-18] MEDS: NICOTINE POLACRILEX 2 MG GUM PO PRN ×5 (07:14→22:47)
[2016-07-18] MEDS: ADVAIR DISKUS 500/50 INH PWD INH SCH ×2 (08:12→20:34)
[2016-07-18] MEDS: GABAPENTIN 400 MG CAP PO SCH ×3 (08:13→20:35)
[2016-07-18] MEDS: hydrOXYzine 50 MG TAB PO SCH ×3 (08:13→20:35)
[2016-07-18] MEDS: MELOXICAM (MOBIC) 7.5 MG TAB PO SCH ×2 (08:13→20:35)
[2016-07-18] MEDS: FUROSEMIDE 20 MG TAB PO SCH (08:13)
[2016-07-18] MEDS: OMEPRAZOLE 20 MG CAP PO SCH (08:13)
[2016-07-18] MEDS: SERTRALINE HCL 50 MG TAB PO SCH (08:13)
[2016-07-18] MEDS: METOPROLOL SUCC (TopROL XL) 50MG **XL** TAB PO SCH (08:14)
[2016-07-18] MEDS: ACETAMINOPHEN TAB 650MG DOSE (2X325MG) PO PRN ×2 (08:14→18:21)
[2016-07-18] MEDS: **NOTE PATIENT COMMENT** MISC XX SCH (08:15)
[2016-07-18] MEDS: OLANZapine 5 MG TAB PO PRN ×2 (15:04→21:57)
[2016-07-18 18:00] VITALS: BP 125/56
[2016-07-18] MEDS: MONTELUKAST 10 MG TAB PO SCH (18:19)
--- NOTE | 2016-07-18 18:31 | MHIPNPDOC ---
[facility] Progress Note Progress Note DATE OF SERVICE: 07/18/16 HISTORY: Patient is 30-year-old female with history of depression, anxiety, alcohol and marijuana abuse who recently relapsed on alcohol and was transferred from [facility] after she cut her forearm and had been experiencing suicidal ideation. Patient has history of suicide attempt age 14, SIB, says she has not engaged in SIB behavior 3 years until recent episode. Patient indicates alcohol relapse, suicidal thinking, and SIB were preceded by girlfriend of 2 years breaking up with her. Patient has history of prior psychiatric admission and has been receiving outpatient psychiatric treatment through [facility], has participated in rehabilitation treatment 2. Vice President Of Engineering met with patient today to assess treatment progress on inpatient unit. Patient reports improvement to symptoms of anxiety and depression stating, rates current anxiety level of 1/10, depression 1/10, denies suicidal and homicidal ideation, denies auditory and visual hallucinations, denies urge to engage in self-injurious behavior. Patient indicates Zoloft is helping to improve mood and notes, "I mood is a lot more level and I'm not depressed," denies medication side effects and denies need for dosing adjustment, further denies symptoms of activation/hypomania/sisi. Patient has completed Librium taper, denies symptoms of craving or withdrawal, states she continues to utilize olanzapine PRN to address intermittent symptoms of increased anxiety, indicates medication works well and denies medication side effects patient indicates balance of medication regimen remains effective. Patient states appetite is stable, denies challenges with concentration and focus, and reports improvement in energy level. Patient describes sleep as "good," contrary to EMR which patient states is inaccurate, notes trazodone remains effective and she denies nightmares and ruminative thinking. Patient is requesting discharge, indicates she feels stable and prepared to deal with recent termination of relationship with girlfriend in an outpatient environment, presents with no signs of acute distress time of interaction. VITALS: See below NEW TEST RESULTS: No new results, review of [facility] records completed. [facility] labs indicated on 07/09/16 elevated WBC, RDW, MPV, low specific gravity. MEDICAL HISTORY: Psoriatic arthritis, fibromyalgia, asthma, GERD, IBS, hypertension, self-inflicted wound to forearm, abrasion bilateral to buttocks. Patient indicates she may have UTI, reported urinary frequency and burning to ND who has requested urine culture. Urine culture pending 07/10/16 EKG sinus rhythm baseline wander and lead V2, normal ECG. Patient indicates she has history of "heart condition," is asymptomatic, denies symptoms of chest pain, dizziness, headache, shortness of breath, palpitations. UDS - completed 07/09/16 at [facility] negative HCG - completed 07/09/16 at [facility] [place] negative Patient indicates she has a "heart condition," is able to provide no additional information, denies history of definitive diagnosis, is asymptomatic, denies chest pain, palpitations, shortness of breath, dizziness, headache CURRENT MEDICATIONS: See below. MENTAL STATUS EXAMINATION: Patient is a 30-year old female, who is engageable, pleasant and cooperative, presents with adequate hygiene, is dressed in own clothing, makes adequate eye contact, ambulates with steady gait, appears stated age. Speech: Is of normal rate, rhythm, volume, spontaneous, coherent Language skills are intact Thought processes including: Linear, logical, goal-directed Thought content: Rational, logical, no tangentiality or paranoia noted no perseverative thinking Abstract reasoning, and computation: Appears intact Description of associations: Intact Description of abnormal or psychotic thoughts: Patient denies suicidal or homicidal thinking, denies auditory visual hallucinations, does not appear to be responding to internal stimuli, does not endorse bizarre or paranoid ideation , denies preoccupation with violence and/or obsessions Judgment: Adequate, has improved during treatment Insight: Fair, continues to improve Orientation: A and O 3 Recent and remote memory: Appear intact Attention span and concentration: Appears adequate Language: Adequate Fund of knowledge: Adequate Mood: "I'm feeling better, I am ready to go to my brothers and deal with with things." Patient appears less depressed and less anxious, no mood lability noted Affect: Constricted, brightens at times, expresses humor, congruent with mood DIAGNOSES: Major depressive disorder, recurrent, moderate, polysubstance use disorder. Rule out panic disorder, rule out borderline personality disorder, rule out substance-induced mood disorder ASSESSMENT: Patient continues to adjust to unit, is more visible and engageable , is pleasant and cooperative, socializing more with staff and peers, participating in unit programming. Patient indicates Zoloft continues to help reduce symptoms of anxiety and depression, denies symptoms of activation/sisi , denies medication side effects. Patient denies challenges with sleep. Patient has completed Librium taper and denies symptoms of craving or withdrawal, reiterates today medication regimen remains effective and denies medication side effects. Patient denies current suicidal or homicidal ideation and urge to engage in self-injurious behavior, and is able to verbalize awareness of how to access supportive services on the unit if needed. Will into new to evaluate patient's safety, resolution of suicidal ideation and urge to engage in SIB, and will begin to prepare patient for discharge which is tentatively scheduled for tomorrow. Patient reiterates plan remains for her to live with her twin brother, notes today her parents are actively involved in her discharge as well , states she will have routine contact with mother when discharged from the hospital, denies having concerns pertaining to discharge. Patient reiterates today she intends to return to [facility] for outpatient psychotherapy and medication management services. Patient notes today she is willing to participate in outpatient substance abuse treatment in [place]. MANAGEMENT PLAN: Continue Zoloft 50 mg po q am, trazodone 150 mg po hs, hydroxyzine 50 mg po TID PRN, and olanzapine 5 mg po q 6 hours PRN anxiety/ agitation. Maintain safety precautions Patient to attend groups and participate in unit programming to develop coping strategies Engage patient in discharge planning process and arrange meeting with support system to ensure safe discharge planning when appropriate Patient to follow up with PCM upon discharge TIME SPENT: 35 minutes. Vital Signs Vital Signs Date Time Temp Pulse Resp B/P (MAP) Pulse Ox O2 Delivery O2 Flow Rate FiO2 07/18/16 18:00 99.3 82 16 125/56 (79) 07/14/16 06:17 Room Air Current Medications Current Medications Acetaminophen (Tylenol Tab) 650 mg Q6HP PRN PO HEADACHE or DISCOMFORT Last administered on 07/18/16t 08:14; Start 07/11/16 at 00:00; Stop 08/10/16 at 00:00 Al Hydrox/Mg Hydrox/Simethicone (Mylanta) 30 ml Q4HP PRN PO HEARTBURN/ INDIGESTION; Start 07/11/16 at 00:00; Stop 08/10/16 at 00:00 Albuterol Sulfate (Proventil, Ventolin Hfa) 2 puff Q6HP PRN INH SHORTNESS OF BREATH Last administered on 07/18/16 07:11; Start 07/11/16 at 00:00; Stop at 00:00 Bacitracin (Bacitracin Oint) apply to abrasion ... BID TOP Last administered on 07/12/16 08:11; Start 07/12/16 at 09:00; Stop 07/12/16 at 09:23; Status DC Chlordiazepoxide (Librium) 5 mg QAM PO Last administered on 07/15/16 08:41; Start 07/15/16 at 09:00; Stop 07/15/16 at 18:45; Status DC Chlordiazepoxide (Librium) 5 mg QHS PO Last administered on 07/17/16 20:56; Start 07/17/16 at 21:00; Stop 07/17/16 at 22:00; Status DC Chlordiazepoxide (Librium) 10 mg BID PO Last administered on 07/14/16 21:50; Start 07/14/16 at 09:00; Stop 07/14/16 at 22:04; Status DC Chlordiazepoxide (Librium) 10 mg QHS PO Last administered on 07/15/16 20:25; Start 07/15/16 at 21:00; Stop 07/15/16 at 22:00; Status DC Chlordiazepoxide (Librium) 10 mg QHS PO Last administered on 07/16/16 21:22; Start 07/16/16 at 21:00; Stop 07/16/16 at 22:00; Status DC Chlordiazepoxide (Librium) 15 mg BID PO ; Start 07/10/16 at 21:00; Stop at 03:09; Status DC Chlordiazepoxide (Librium) 15 mg BID PO Last administered on 07/13/16 19:59; Start 07/11/16 at 09:00; Stop 07/13/16 at 23:00; Status DC Furosemide (Lasix) 10 mg DAILY PO Last administered on 07/18/16 08:13; Start at 09:00; Stop 08/10/16 at 08:59 Gabapentin (Neurontin) 300 mg TID PO ; Start 07/11/16 at 09:00; Stop 07/11/16 at 09:00; Status DC Gabapentin (Neurontin) 800 mg TID PO Last administered on 07/18/16 15:43; Start 07/11/16 at 09:00; Stop 08/10/16 at 08:59 Home Med (Med Rec Complete!) ASDIRECTED XX ; Start 07/11/16 at 00:00; Stop at 00:03; Status DC Hydroxyzine HCl (Atarax) 50 mg TID PO Last administered on 07/18/16 15:43; Start 07/10/16 at 21:00; Stop 08/09/16 at 20:59 Lidocaine (Lidoderm Patch) 1 patch DAILY@2100 TD Last administered on 07/17/16 21:23; Start 07/13/16 at 21:00; Stop 08/12/16 at 20:59 Lorazepam (Ativan) 1 mg STAT STAT PO Last administered on 07/10/16 23:47; Start 07/10/16 at 23:43; Stop 07/10/16 at 23:45; Status DC Magnesium Hydroxide (Milk Of Magnesia) 30 ml DAILYPRN PRN PO CONSTIPATION; Start 07/11/16 at 00:00; Stop 08/10/16 at 00:00 Meloxicam (Mobic) 7.5 mg BID PO Last administered on 07/18/16 08:13; Start at 21:00; Stop 08/09/16 at 20:59 Metoprolol Succinate (TopROL XL) 50 mg DAILY PO Last administered on 07/18/16 08:14; Start 07/11/16 at 09:00; Stop 08/10/16 at 08:59 Miscellaneous (Unresolved Patient Own Med Order) SEE LABEL COMMENTS UNRESOLVED XX ; Start 07/11/16 at 00:01; Stop 07/15/16 at 07:52; Status DC Montelukast Sodium (Singulair) 10 mg DAILY@1800 PO Last administered on 18:04; Start 07/10/16 at 18:00; Stop 08/09/16 at 17:59 Mupirocin (Bactroban 2% Ointment) Apply to bilateral buttocks BID PRN TOP REDNESS/IRRITATION Last administered on 07/13/16 08:15; Start 07/12/16 at 09:30 ; Stop 08/11/16 at 09:29 Nicotine (Nicorette) 4 mg Q2HP PRN PO NICOTINE WITHDRAWAL Last administered on 07/18/16 11:22; Start 07/11/16 at 03:15; Stop 08/10/16 at 03:14 Non-Formulary Medication ( See Comment Field Below ) REMOVE LIDODERM PATCH DAILY@0900 XX Last administered on 07/18/16 08:15; Start 07/14/16 at 09:00; Stop 08/13/16 at 08:59 Olanzapine (ZyPREXA) 5 mg Q6HP PRN PO ANXIETY/AGITATION Last administered on 15:04; Start 07/11/16 at 00:00; Stop 08/10/16 at 00:00 Omeprazole (PriLOSEC) 20 mg DAILY PO Last administered on 07/18/16 08:13; Start 07/11/16 at 09:00; Stop 08/10/16 at 08:59 Patient Own Medication (Patient'S Own Med) 1 ea We@0900 SC ; Start 07/13/16 at 09:00; Stop 07/15/16 at 07:52; Status DC Salmeterol Xinafoate/ Fluticasone (Advair Diskus 500/50) 1 puff BID INH Last administered on 07/18/16 08:12; Start 07/11/16 at 09:00; Stop 08/10/16 at 08:59 Sertraline HCl (Zoloft) 25 mg QAM PO Last administered on 07/13/16 08:11; Start 07/12/16 at 09:00; Stop 07/13/16 at 11:58; Status DC Sertraline HCl (Zoloft) 50 mg QAM PO Last administered on 07/18/16 08:13; Start 07/14/16 at 09:00; Stop 08/13/16 at 08:59 Sodium Chloride ([place] Nasal Cash) 2 spray Q2HP PRN NA NASAL DRYNESS Last administered on 07/17/16 22:16; Start 07/17/16 at 12:30; Stop 08/16/16 at 12:29 Trazodone HCl (Desyrel) 150 mg QHS PO Last administered on 07/17/16 21:22; Start 07/10/16 at 21:00; Stop 08/09/16 at 20:59 Allergies Coded Allergies: Valproic Acid (Verified Allergy, Severe, mouth/throat swelling, 07/10/16) Sulfa Antibiotics (Verified Allergy, Intermediate, body rash, 07/10/16) Paroxetine (Unverified Adverse Reaction, Intermediate, Akathesia, 07/15/16) Quetiapine (Verified Adverse Reaction, Unknown, amnesia, 07/15/16) Patient report Vidya Aguirre Jul 18, 2016 18:31
[2016-07-18] MEDS: traZODone 50 MG TAB PO SCH (21:58)
[2016-07-18] MEDS: LIDOCAINE 5% (LIDODERM) PATCH TD SCH (21:58)
[2016-07-19] MEDS: ACETAMINOPHEN TAB 650MG DOSE (2X325MG) PO PRN (06:17)
[2016-07-19 06:29] VITALS: BP 130/77
[2016-07-19] MEDS: OMEPRAZOLE 20 MG CAP PO SCH (08:41)
[2016-07-19] MEDS: MELOXICAM (MOBIC) 7.5 MG TAB PO SCH (08:41)
[2016-07-19] MEDS: ADVAIR DISKUS 500/50 INH PWD INH SCH (08:41)
[2016-07-19] MEDS: GABAPENTIN 400 MG CAP PO SCH (08:41)
[2016-07-19 08:42] VITALS: BP 130/77
[2016-07-19] MEDS: SERTRALINE HCL 50 MG TAB PO SCH (08:42)
[2016-07-19] MEDS: hydrOXYzine 50 MG TAB PO SCH (08:42)
[2016-07-19] MEDS: METOPROLOL SUCC (TopROL XL) 50MG **XL** TAB PO SCH (08:42)
[2016-07-19] MEDS: FUROSEMIDE 20 MG TAB PO SCH (08:42)
[2016-07-19] MEDS: NICOTINE POLACRILEX 2 MG GUM PO PRN ×3 (08:45→12:58)
[2016-07-19] MEDS: **NOTE PATIENT COMMENT** MISC XX SCH (09:00)
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
[2016-07-19] MEDS ORDERED: SERT50TA PO (11:17)
[2016-07-19] MEDS ORDERED: OLAN5TAB PO (11:17)
[2016-07-19] MEDS ORDERED: HYDRO50TAB PO (11:20)
[2016-07-19] MEDS: ALBUTEROL 90 MCG/ACT 8GM HFA INHALER INH PRN (11:59)
== END 2016-07-19 13:55 | disposition home or self-care (01) | DRG 751 ==
LOC: M ED 23:04 → M ED INP 07-11 00:38 → M PSY 07-11 01:10
PROVIDERS: ADMIT Psychiatry & Neurology Psychiatry; ATTEND Psychiatry & Neurology Psychiatry
DX: F33.1 Major depressive disorder, recurrent, moderate (principal); F19.94 Other psychoactive substance use, unspecified with psychoactive substance-induced mood disorder; F60.3 Borderline personality disorder; F41.0 Panic disorder [episodic paroxysmal anxiety]; Z88.2 Allergy status to sulfonamides; Z88.8 Allergy status to other drugs, medicaments and biological substances; Z79.899 Other long term (current) drug therapy; J45.909 Unspecified asthma, uncomplicated; I10 Essential (primary) hypertension; K21.9 Gastro-esophageal reflux disease without esophagitis; F41.9 Anxiety disorder, unspecified; K58.8 Other irritable bowel syndrome

== ENCOUNTER 2016-08-13 04:40 | Inpatient (IN) | payer OTHER ==
[~2016-08-13] VITALS: Ht 167.6 cm; Wt 113.9 kg
[~2016-08-13 04:40] MED LIST changes: +ALBU17IN INH; +CLON0.5T PO; +CLON1TAB PO; +ENBR50IN4 SUBQ; +FURO20TA2 PO; +GABA800T PO; +HYDR50TA70 PO; +HYDRO50TAB PO; +MELO7.5T7 PO; +MONT10TA2 PO; +OLAN5TAB PO; +SERT50TA PO; -TRAZ150T14 PO; +TRAZ1TAB14 PO
[2016-08-13] MEDS ORDERED: SERT-138 PO (05:22)
[2016-08-13] MEDS ORDERED: CLON1TAB PO (05:22)
[2016-08-13 06:18] LABS: MEAN CORPUSCULAR HEMOGLOBIN 28.1 pg (27.0-33.0); MEAN CORPUSCULAR VOLUME 85.2 fl (80.0-96.0); RED CELL DISTRIBUTION WIDTH 14.8 % (11.5-14.5); WHITE BLOOD COUNT 9.7 K/mm3 (4.0-10.0)
[2016-08-13 06:32] LABS: ALBUMIN 3.5 GM/DL (3.2-5.2); ALBUMIN/GLOBULIN RATIO 1.03 (1.00-1.93); ALKALINE PHOSPHATASE 75 U/L (45-117); ALT/SGPT 26 U/L (12-78); ANION GAP 10 MEQ/L (8-16); AST/SGOT 19 U/L (15-37); BILIRUBIN,DIRECT < 0.1 MG/DL (0.0-0.2); BILIRUBIN,TOTAL 0.2 MG/DL (0.2-1.0); BLOOD UREA NITROGEN 10 MG/DL (7-18); CALCIUM LEVEL 8.4 MG/DL (8.5-10.1); CARBON DIOXIDE LEVEL 20 MEQ/L (21-32); CHLORIDE LEVEL 110 MEQ/L (98-107); CREATININE FOR GFR 0.71 MG/DL (0.55-1.02); GLOMERULAR FILTRATION RATE > 60.0 (>60); GLUCOSE, FASTING 83 MG/DL (70-105); POTASSIUM SERUM 3.6 MEQ/L (3.5-5.1); SODIUM LEVEL 140 MEQ/L (136-145); TOTAL PROTEIN 6.9 GM/DL (6.4-8.2)
[2016-08-13 06:36] LABS: METHADONE URINE NEGATIVE (NEGATIVE)
[2016-08-13 06:49] LABS: CONTROL LINE HCG INT CTR LINE PRESENT
[2016-08-13] MEDS ORDERED: LORazepam 2 MG TAB PO STA (07:05)
[2016-08-13] MEDS ORDERED: CLON0.5T PO (07:21)
[2016-08-13] MEDS ORDERED: ENBR50IN2 SC (07:21)
[2016-08-13] MEDS ORDERED: SALI0.6523 (07:22)
[2016-08-13 08:41] VITALS: BP 119/82
[2016-08-13] MEDS ORDERED: traZODone 100 MG TAB PO PRN (10:00)
[2016-08-13] MEDS ORDERED: chlordiazePOXIDE 25 MG CAP PO PRN (10:00)
[2016-08-13] MEDS ORDERED: MOM 30ML SUSPENSION UDC PO PRN (10:30)
[2016-08-13] MEDS ORDERED: MAALOX 30 ML SUSP *UDC PO PRN (10:30)
[2016-08-13] MEDS: MONTELUKAST 10 MG TAB PO SCH (11:38)
[2016-08-13] MEDS: MELOXICAM (MOBIC) 7.5 MG TAB PO SCH ×2 (11:38→20:12)
[2016-08-13] MEDS: FOLIC ACID 1 MG TAB PO SCH (11:39)
[2016-08-13] MEDS: THIAMINE 100 MG TAB PO SCH ×2 (11:39→20:12)
[2016-08-13] MEDS: SERTRALINE 100 MG TAB PO SCH (11:39)
[2016-08-13] MEDS: NICOTINE 21MG/24HR 1 EA TRANSDERMAL TD SCH (11:39)
[2016-08-13] MEDS: MULTIVITAMINS/MINERALS THERAP 1 TAB PO SCH (11:39)
[2016-08-13] MEDS: GABAPENTIN 400 MG CAP PO SCH ×3 (11:39→20:13)
[2016-08-13] MEDS: OMEPRAZOLE 20 MG CAP PO SCH (11:39)
[2016-08-13] MEDS: chlordiazePOXIDE 25 MG CAP PO SCH ×3 (11:39→20:13)
[2016-08-13 12:08] VITALS: BP 129/73
[2016-08-13] MEDS: METOPROLOL SUCC (TopROL XL) 50MG **XL** TAB PO SCH (12:10)
[2016-08-13] MEDS: ADVAIR DISKUS 500/50 INH PWD INH SCH ×2 (12:10→20:12)
[2016-08-13] MEDS: ALBUTEROL 90 MCG/ACT 8GM HFA INHALER INH PRN (13:40)
[2016-08-13 16:15] VITALS: BP 124/66
[2016-08-13] MEDS: OLANZapine 5 MG TAB PO PRN (21:59)
[2016-08-13] MEDS ORDERED: traZODone 50 MG TAB PO ONE (23:00)
[2016-08-14 06:13] VITALS: BP 129/71
[2016-08-14] MEDS: ACETAMINOPHEN TAB 650MG DOSE (2X325MG) PO PRN (06:27)
[2016-08-14 08:15] VITALS: BP 128/87
[2016-08-14 08:20] VITALS: BP 128/87
[2016-08-14] MEDS: OMEPRAZOLE 20 MG CAP PO SCH (08:51)
[2016-08-14] MEDS: MULTIVITAMINS/MINERALS THERAP 1 TAB PO SCH (08:51)
[2016-08-14] MEDS: chlordiazePOXIDE 25 MG CAP PO SCH ×2 (08:51→20:10)
[2016-08-14] MEDS: MELOXICAM (MOBIC) 7.5 MG TAB PO SCH ×2 (08:51→20:10)
[2016-08-14] MEDS: MONTELUKAST 10 MG TAB PO SCH (08:51)
[2016-08-14] MEDS: SERTRALINE 100 MG TAB PO SCH (08:51)
[2016-08-14] MEDS: GABAPENTIN 400 MG CAP PO SCH ×3 (08:51→20:10)
[2016-08-14] MEDS: ADVAIR DISKUS 500/50 INH PWD INH SCH ×2 (08:51→20:10)
[2016-08-14] MEDS: METOPROLOL SUCC (TopROL XL) 50MG **XL** TAB PO SCH (08:51)
[2016-08-14] MEDS: FOLIC ACID 1 MG TAB PO SCH (08:52)
[2016-08-14] MEDS: THIAMINE 100 MG TAB PO SCH ×2 (08:52→20:10)
[2016-08-14] MEDS: NICOTINE 21MG/24HR 1 EA TRANSDERMAL TD SCH (08:53)
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
[2016-08-14] MEDS: OLANZapine 5 MG TAB PO PRN ×2 (11:46→20:14)
[2016-08-14 11:56] VITALS: BP 122/66
[2016-08-14] MEDS: hydrOXYzine 50 MG TAB PO PRN ×2 (15:48→23:15)
[2016-08-14 18:43] VITALS: BP 125/71
[2016-08-14] MEDS: ALBUTEROL 90 MCG/ACT 8GM HFA INHALER INH PRN (20:10)
[2016-08-14] MEDS: BACITRACIN OINT 30GM TOP SCH (21:00)
--- NOTE | 2016-08-14 22:20 | HPE ---
DATE OF ADMISSION: 08/13/2016 HISTORY OF PRESENT ILLNESS: Please refer to psychiatric history and evaluation for further details on this admission. This examination and history is intended for medical issues, which may need treatment, followup or consultation on this 30-year-old female. ALLERGIES: DEPAKOTE, SULFA, PAROXETINE, SEROQUEL. SOCIAL HISTORY: She lives in [place]. She is single. She has broken up with her significant other several weeks ago. She is currently living with her brother. EtOH: She drinks at least once a week until she is drunk. She smokes one pack of cigarettes per day. Recreational drug use: Occasional marijuana. FAMILY HISTORY: Noncontributory. LABORATORY DATA: WBC 9.7, hemoglobin 12.3, hematocrit 37.4. Platelets 282. Sodium 140, potassium 3.6, chloride 110, CO2 of 20, BUN 10, creatinine 0.71, calcium 8.4. Urine positive for opiates. EtOH was 0.068. CURRENT MEDICATIONS: - albuterol two puffs by mouth every 4 hours as needed for shortness of breath or wheeze - clonazepam 0.5 mg by mouth nightly - clonazepam 1 mg by mouth daily - Lasix 10 mg by mouth daily - gabapentin 800 mg by mouth three times a day - hydroxyzine 50 mg three times a day as needed for agitation - meloxicam 7.5 mg by mouth twice a day - metoprolol succinate 50 mg by mouth daily - Singulair 10 mg by mouth daily - omeprazole 20 mg by mouth daily - Advair 50/500 one inhalation twice a day - trazodone 150 mg by mouth at night as needed for sleep - etanercept 50 mg per mL subcutaneously as directed PAST MEDICAL HISTORY: Asthma, hypertension, gastroesophageal reflux disease (GERD), anxiety, depression, irritable bowel syndrome, fibromyalgia, arthritis. PAST SURGICAL HISTORY: Cholecystectomy, appendectomy, umbilical hernia repair in April 2015, left anterior cruciate ligament repair. REVIEW OF SYSTEMS: Ten systems review was done. She as clinically at her baseline physically. Her only complaint was of continued intermittent discomfort of her left knee, for which she requested Lidocaine patch and some bacitracin ointment for a new tattoo on her right forearm. Otherwise, ten systems review was umremarkable. PHYSICAL EXAMINATION: GENERAL: 30-year-old obese female in no acute distress. Height 66 inches, weight 106.8 kg, Body Mass Index (BMI) 38, blood pressure 129/71, pulse 84, respirations 16, temperature 96.7. The patient is alert and oriented times three. HEENT: Pupils are equal and reactive to light. Extraocular muscles intact. Sclerae clear. Conjunctivae normal. No facial asymmetry. Pharynx, gums and tongue pink and moist. Tongue is midline. NECK: Supple without lymphadenopathy, thyromegaly or goiter. Carotids 2+ without bruit. CHEST: Clear to auscultation without wheeze or retraction. HEART: Regular. ABDOMEN: Benign. Bowel sounds positive. GENITOURINARY/RECTAL: Not done. EXTREMITIES: Full range of motion. No cyanosis, clubbing or edema. Left anterior forearm has a superficial laceration and scab. Numerous healed and scarred superficial lacerations noted on both arms. Hand grasps equal. Right forearm has a long tattoo on the inner aspect that goes from just above the wrist to almost the elbow. No redness or swelling. No drainage. SKIN: Warm and dry. IMPRESSION/PLAN: 1. Psychiatric plan per psychiatry. 2. Few anterior superficial healing lacerations with no redness or drainage. 3. History of asthma, stable. Continue Advair and rescue inhaler. 4. History of hypertension, stable. 5. History of gastroesophageal reflux disease (GERD), continue omeprazole. 6. Bacitracin ointment twice a day to tattoo. 7. Lidocaine patch for the left knee, on 12 hours and off 12 hours. 8. Asthma, stable.
[2016-08-14] MEDS: traZODone 50 MG TAB PO PRN (23:15)
[2016-08-15 06:35] VITALS: BP 129/66
[2016-08-15] MEDS: ADVAIR DISKUS 500/50 INH PWD INH SCH ×2 (08:58→20:13)
[2016-08-15] MEDS: BACITRACIN OINT 30GM TOP SCH ×2 (08:58→20:13)
[2016-08-15] MEDS: MONTELUKAST 10 MG TAB PO SCH (08:59)
[2016-08-15] MEDS: FOLIC ACID 1 MG TAB PO SCH (08:59)
[2016-08-15] MEDS: MULTIVITAMINS/MINERALS THERAP 1 TAB PO SCH (08:59)
[2016-08-15] MEDS: LIDOCAINE 5% (LIDODERM) PATCH TD SCH (08:59)
[2016-08-15] MEDS: chlordiazePOXIDE 25 MG CAP PO SCH (08:59)
[2016-08-15] MEDS: MELOXICAM (MOBIC) 7.5 MG TAB PO SCH ×2 (08:59→20:12)
[2016-08-15] MEDS: GABAPENTIN 400 MG CAP PO SCH ×3 (08:59→20:12)
[2016-08-15] MEDS: THIAMINE 100 MG TAB PO SCH ×2 (08:59→20:12)
[2016-08-15] MEDS: OMEPRAZOLE 20 MG CAP PO SCH (08:59)
[2016-08-15] MEDS: SERTRALINE 100 MG TAB PO SCH (08:59)
[2016-08-15] MEDS: NICOTINE 21MG/24HR 1 EA TRANSDERMAL TD SCH (09:00)
[2016-08-15] MEDS: METOPROLOL SUCC (TopROL XL) 50MG **XL** TAB PO SCH (09:03)
[2016-08-15] MEDS: hydrOXYzine 50 MG TAB PO PRN ×2 (09:14→16:19)
[2016-08-15] MEDS: OLANZapine 5 MG TAB PO PRN ×2 (11:20→20:12)
[2016-08-15 11:28] VITALS: BP 129/69
[2016-08-15] MEDS: NALTREXONE 50 MG TAB PO SCH (13:35)
--- NOTE | 2016-08-15 15:39 | MHIPNPDOC ---
[facility] Progress Note Progress Note DATE OF SERVICE: 08/15/16 INTERVAL HISTORY: Medication Side effects: Denies medication side effects Behavior: She has medication/drug-seeking behavior Group Attendance: Attended groups irregularly Psychiatric Symptom change: No major change, continues to report depression and high anxiety level due to her relationship problems (breakup). Doesn't acknowledge alcohol consumption as a problem and a major contributor to her depression. VITAL SIGNS: See below. NEW TEST RESULTS: See below CURRENT MEDICATIONS: See below. MENTAL STATUS EXAMINATION: General: Alert, cooperative, with poor eye contact, dressed in hospital clothes with fair hygiene. Speech: Slurred, soft and slow. Thought processes: Intact Thought content: Coherent Abstract reasoning, and computation: Fair Description of associations: Not loose Description of abnormal or psychotic thoughts: She denies auditory or visual hallucinations, denies thought delusions and denies homicidal ideations but admits to have active suicidal thoughts and desires to harm self (cut herself) Judgment: Poor Insight: Poor Orientation: Oriented 3 Recent and remote memory: Intact Attention span and concentration: Fair Fund of knowledge: Fair Mood: "I still feel depressed" Affect: Constricted DIAGNOSES: 1. Unspecified depressive disorder. 2. Rule out substance-induced mood disorder. 3. Marijuana use disorder 4. Alcohol use disorder ASSESSMENT: Patient has drug-seeking behavior, she reports feeling anxious but objectively she was seen very calm, almost sleepy, with slurred speech. She is medicated with gabapentin, Librium, Atarax, Zyprexa, trazodone and sertraline. Today Librium was decreased from 25 mg by mouth twice a day to 25 mg by mouth daily and she was started on ReVia 50 mg by mouth daily for withdrawals. The reason for decreasing Librium is because she already has substance use and abuse disorders, and she has been looking forward for an increase in the Librium dosage. She was told that Librium was going to be decreased because she is at risk of developing another addiction and that instead she was going to be receiving naltrexone for withdrawals. She didn't seem to like the change but she accepted it. MANAGEMENT PLAN: Medications: Will continue on same medications except for Librium that has been decreased to 25 mg by mouth daily, she is on a tapering dose and will discontinue on Monday. She was started on ReVia today for withdrawals. The rest of the medications continue to be the same. Psychotherapy: Will encourage her to attend groups Social: Will reinforce the importance of social and family networks for support Misc: Will educate her regarding alcohol abuse or use and how it impacts depression by creating more depression. We will help her to gain insight into her alcohol abuse problem. Disposition: Patient still needs to be at the inpatient mental health unit until her symptoms decrease and she is able to improve judgment and insight. Upon discharge she will need to go to a rehabilitation program. TIME SPENT: 20 minutes. Vital Signs Vital Signs Date Time Temp Pulse Resp B/P (MAP) Pulse Ox O2 Delivery O2 Flow Rate FiO2 08/15/16 11:28 99.3 76 16 129/69 (89) 08/13/16 08:41 96 Room Air Current Medications Current Medications Acetaminophen (Tylenol Tab) 650 mg Q6HP PRN PO PAIN / FEVER Last administered on 08/14/16 06:27; Start 08/13/16 at 10:30; Stop 09/12/16 at 10:29 Al Hydrox/Mg Hydrox/Simethicone (Mylanta) 30 ml Q6HP PRN PO HEARTBURN; Start at 10:30; Stop 09/12/16 at 10:29 Albuterol Sulfate (Proventil, Ventolin Hfa) 2 puff Q4HP PRN INH SHORTNESS OF BREATH Last administered on 08/14/16 20:10; Start 08/13/16 at 10:00; Stop at 09:59 Bacitracin (Bacitracin Oint) apply to right fore... BID TOP Last administered on 08/15/16 08:58; Start 08/14/16 at 21:00; Stop 09/13/16 at 20:59 Chlordiazepoxide (Librium) 25 mg BID PO Last administered on 08/15/16 08:59; Start 08/14/16 at 21:00; Stop 08/15/16 at 13:19; Status DC Chlordiazepoxide (Librium) 25 mg DAILY PO ; Start 08/16/16 at 09:00; Stop at 20:59 Chlordiazepoxide (Librium) 25 mg TID PO Last administered on 08/14/16 08:51; Start 08/13/16 at 09:00; Stop 08/14/16 at 09:41; Status DC Chlordiazepoxide (Librium) 25 mg TIDP PRN PO Benzo/ETOH withdrawal sxs; Start 08/13/16 at 10:00; Stop 08/14/16 at 09:41; Status DC Folic Acid (Folic Acid) 1 mg DAILY PO Last administered on 08/15/16 08:59; Start 08/13/16 at 09:00; Stop 09/12/16 at 08:59 Gabapentin (Neurontin) 800 mg TID PO Last administered on 08/15/16 08:59; Start 08/13/16 at 09:00; Stop 09/12/16 at 08:59 Home Med (Med Rec Complete!) ASDIRECTED XX ; Start 08/13/16 at 07:30; Stop at 07:30; Status DC Hydroxyzine HCl (Atarax) 50 mg TIDP PRN PO ANXIETY/AGITATION Last administered on 08/15/16 09:14; Start 08/13/16 at 10:00; Stop 09/12/16 at 09:59 Lidocaine (Lidoderm Patch) 1 patch DAILY TD Last administered on 08/15/16 08:59 ; Start 08/15/16 at 09:00; Stop 09/14/16 at 08:59 Lorazepam (Ativan) 2 mg STAT STAT PO Last administered on 08/13/16 07:10; Start 08/13/16 at 07:05; Stop 08/13/16 at 07:06; Status DC Magnesium Hydroxide (Milk Of Magnesia) 30 ml DAILYPRN PRN PO CONSTIPATION; Start 08/13/16 at 10:30; Stop 09/12/16 at 10:29 Meloxicam (Mobic) 7.5 mg BID PO Last administered on 08/15/16 08:59; Start 08/13 at 09:00; Stop 09/12/16 at 08:59 Metoprolol Succinate (TopROL XL) 50 mg DAILY PO Last administered on 08/15/16 09:03; Start 08/13/16 at 09:00; Stop 09/12/16 at 08:59 Miscellaneous (Unresolved Patient Own Med Order) SEE LABEL COMMENTS UNRESOLVED XX ; Start 08/13/16 at 00:01; Stop 09/12/16 at 00:00 Montelukast Sodium (Singulair) 10 mg DAILY PO Last administered on 08/15/16 08: 59; Start 08/13/16 at 09:00; Stop 09/12/16 at 08:59 Multivitamins (Theragram-M) 1 tab DAILY PO Last administered on 08/15/16 08:59 ; Start 08/13/16 at 09:00; Stop 09/12/16 at 08:59 Naltrexone HCl (Revia) 50 mg DAILY PO Last administered on 08/15/16 13:35; Start 08/15/16 at 09:00; Stop 09/14/16 at 08:59 Nicotine (Nicoderm Cq 21mg) 1 patch DAILY TD Last administered on 08/15/16 09: 00; Start 08/13/16 at 09:00; Stop 08/15/16 at 13:28; Status DC Nicotine (Nicorette) 2 mg Q2HP PRN PO SMOKING CESSATION; Start 08/15/16 at 13:30 ; Stop 09/14/16 at 13:29 Non-Formulary Medication ( See Comment Field Below ) REMOVE LIDODERM PATCH DAILY@21 XX ; Start 08/15/16 at 21:00; Stop 09/14/16 at 20:59 Olanzapine (ZyPREXA) 5 mg Q6HP PRN PO AGITATION/ANXIETY Last administered on 11:20; Start 08/13/16 at 16:30; Stop 09/12/16 at 16:29 Omeprazole (PriLOSEC) 20 mg DAILY PO Last administered on 08/15/16 08:59; Start 08/13/16 at 09:00; Stop 09/12/16 at 08:59 Patient Own Medication (Patient'S Own Med) Etanercept (Enbrel) 50 mg... Sa@0900 SC ; Start 08/20/16 at 09:00; Stop 09/19/16 at 08:59; Status Future Hold Salmeterol Xinafoate/ Fluticasone (Advair Diskus 500/50) 1 puff BID INH Last administered on 08/15/16 08:58; Start 08/13/16 at 09:00; Stop 09/12/16 at 08:59 Sertraline HCl (Zoloft) 100 mg DAILY PO Last administered on 08/15/16 08:59; Start 08/13/16 at 09:00; Stop 09/12/16 at 08:59 Thiamine HCl (Thiamine HCl) 100 mg BID PO Last administered on 08/15/16 08:59; Start 08/13/16 at 09:00; Stop 08/15/16 at 23:59 Trazodone HCl (Desyrel) 100 mg QHSP PRN PO INSOMNIA Last administered on 21:59; Start 08/13/16 at 10:00; Stop 08/13/16 at 22:54; Status DC Trazodone HCl (Desyrel) 150 mg QHSP PRN PO INSOMNIA Last administered on 23:15; Start 08/13/16 at 23:00; Stop 09/12/16 at 22:59 Allergies Coded Allergies: Valproic Acid (Verified Allergy, Severe, mouth/throat swelling, 07/10/16) Sulfa Antibiotics (Verified Allergy, Intermediate, body rash, 07/10/16) Paroxetine (Unverified Adverse Reaction, Intermediate, Akathesia, 07/15/16) Quetiapine (Verified Adverse Reaction, Unknown, amnesia, 07/15/16) Patient report DANGELO LEMUS MD Aug 15, 2016 15:39
[2016-08-15 18:12] VITALS: BP 135/67
[2016-08-15] MEDS: NICOTINE POLACRILEX 2 MG GUM PO PRN (20:12)
[2016-08-15] MEDS: ALBUTEROL 90 MCG/ACT 8GM HFA INHALER INH PRN (20:15)
[2016-08-15] MEDS: **NOTE PATIENT COMMENT** MISC XX SCH (20:16)
[2016-08-15 21:00] VITALS: BP 134/73
[2016-08-15] MEDS: traZODone 50 MG TAB PO PRN (21:27)
[2016-08-15] MEDS: ACETAMINOPHEN TAB 650MG DOSE (2X325MG) PO PRN (21:27)
[2016-08-16 06:23] VITALS: BP 126/59
[2016-08-16] MEDS: ADVAIR DISKUS 500/50 INH PWD INH SCH ×2 (08:12→20:10)
[2016-08-16] MEDS: METOPROLOL SUCC (TopROL XL) 50MG **XL** TAB PO SCH (08:12)
[2016-08-16] MEDS: LIDOCAINE 5% (LIDODERM) PATCH TD SCH (08:12)
[2016-08-16] MEDS: BACITRACIN OINT 30GM TOP SCH ×2 (08:12→20:14)
[2016-08-16] MEDS: MULTIVITAMINS/MINERALS THERAP 1 TAB PO SCH (08:13)
[2016-08-16] MEDS: MONTELUKAST 10 MG TAB PO SCH (08:13)
[2016-08-16] MEDS: FOLIC ACID 1 MG TAB PO SCH (08:13)
[2016-08-16] MEDS: OMEPRAZOLE 20 MG CAP PO SCH (08:13)
[2016-08-16] MEDS: SERTRALINE 100 MG TAB PO SCH (08:13)
[2016-08-16] MEDS: GABAPENTIN 400 MG CAP PO SCH ×3 (08:13→20:10)
[2016-08-16] MEDS: MELOXICAM (MOBIC) 7.5 MG TAB PO SCH ×2 (08:13→20:10)
[2016-08-16] MEDS: NALTREXONE 50 MG TAB PO SCH (08:13)
[2016-08-16] MEDS: chlordiazePOXIDE 25 MG CAP PO SCH (08:13)
[2016-08-16] MEDS: OLANZapine 5 MG TAB PO PRN ×2 (09:29→17:40)
[2016-08-16] MEDS: NICOTINE POLACRILEX 2 MG GUM PO PRN ×2 (09:29→20:11)
[2016-08-16 09:33] VITALS: BP 126/59
--- NOTE | 2016-08-16 10:10 | MHIPNPDOC ---
[facility] Progress Note Progress Note DATE OF SERVICE: 08/16/16 HISTORY: day 4 of admission, pt has been experiencing depression, anxiety and alcohol withdrawal. VITAL SIGNS: See below. NEW TEST RESULTS: na CURRENT MEDICATIONS: See below. MENTAL STATUS EXAMINATION: Patient is a 30-year old female, who is laying in bed in hospital attire, long dark hair, coherent and asking for more librium. Speech: Is clear and spontaneous Language skills are intact Thought processes including: goal directed Thought content: med seeking. Abstract reasoning, and computation: good. Description of associations: good. Description of abnormal or psychotic thoughts: no psychotic symptoms illicited. Pt denies suicide ideation, intent or plan.. Judgment: very limited Insight: poor. Orientation: well oriented to person, place, surroundings and time. Recent and remote memory: appears intact Attention span and concentration: adequate Fund of knowledge: average. Mood: anxious. Affect: calm, in control, has range. DIAGNOSES: 1. Unspecified depressive disorder. 2. Rule out substance-induced mood disorder. 3. Marijuana use disorder 4. Alcohol use disorder ASSESSMENT: Pt seen in the absence of Dr. Michael today. Review of chart indicates suspicion pt is med seeking. She told me immediately that she is not on enough Librium. Her taper has been done as recommended and she is also on Naltrexone now.It was explained to her that acute withdrawal is over and her medication doses are adequate. She had asked that the atarax be scheduled rather than prn. In light of her axis II behavior atarax will be left at prn. Pt encouraged to get up and participate in the unit milieu and contribute to her recovery by active engagement with groups, peers and staff. She stated she would do so. Pt denies thoughts of self-harm or suicide. Pt denies use of other substances when drinking however the record indicates she uses cannabis. Her tox was + for BNZ on admission. Pt is aware that alcohol and benzodiazepines can be lethal in combination. Pt states she has been drinking mostly beer lately but has been drinking daily. MANAGEMENT PLAN: continue close observation and medication regime. Enc pt to get out of room and find something to occupy her time for today. Self-inflicted superficial lacerations are healing well. No s/s of infection. TIME SPENT: 15 minutes. Vital Signs Vital Signs Date Time Temp Pulse Resp B/P (MAP) Pulse Ox O2 Delivery O2 Flow Rate FiO2 7/4/17 08:12 90 126/59 08/16/16 06:23 98.6 18 08/13/16 08:41 96 Room Air Current Medications Current Medications Acetaminophen (Tylenol Tab) 650 mg Q6HP PRN PO PAIN / FEVER Last administered on 08/15/16 21:27; Start 08/13/16 at 10:30; Stop 09/12/16 at 10:29 Al Hydrox/Mg Hydrox/Simethicone (Mylanta) 30 ml Q6HP PRN PO HEARTBURN; Start at 10:30; Stop 09/12/16 at 10:29 Albuterol Sulfate (Proventil, Ventolin Hfa) 2 puff Q4HP PRN INH SHORTNESS OF BREATH Last administered on 08/15/16 20:15; Start 08/13/16 at 10:00; Stop at 09:59 Bacitracin (Bacitracin Oint) apply to right fore... BID TOP Last administered on 08/16/16 08:12; Start 08/14/16 at 21:00; Stop 09/13/16 at 20:59 Chlordiazepoxide (Librium) 25 mg BID PO Last administered on 08/15/16 08:59; Start 08/14/16 at 21:00; Stop 08/15/16 at 13:19; Status DC Chlordiazepoxide (Librium) 25 mg DAILY PO Last administered on 08/16/16 08:13; Start 08/16/16 at 09:00; Stop 08/21/16 at 20:59 Chlordiazepoxide (Librium) 25 mg TID PO Last administered on 08/14/16 08:51; Start 08/13/16 at 09:00; Stop 08/14/16 at 09:41; Status DC Chlordiazepoxide (Librium) 25 mg TIDP PRN PO Benzo/ETOH withdrawal sxs; Start 08/13/16 at 10:00; Stop 08/14/16 at 09:41; Status DC Folic Acid (Folic Acid) 1 mg DAILY PO Last administered on 08/16/16 08:13; Start 08/13/16 at 09:00; Stop 09/12/16 at 08:59 Gabapentin (Neurontin) 800 mg TID PO Last administered on 08/16/16 08:13; Start 08/13/16 at 09:00; Stop 09/12/16 at 08:59 Home Med (Med Rec Complete!) ASDIRECTED XX ; Start 08/13/16 at 07:30; Stop at 07:30; Status DC Hydroxyzine HCl (Atarax) 50 mg TIDP PRN PO ANXIETY/AGITATION Last administered on 08/15/16 16:19; Start 08/13/16 at 10:00; Stop 09/12/16 at 09:59 Lidocaine (Lidoderm Patch) 1 patch DAILY TD Last administered on 08/16/16 08:12 ; Start 08/15/16 at 09:00; Stop 09/14/16 at 08:59 Lorazepam (Ativan) 2 mg STAT STAT PO Last administered on 08/13/16 07:10; Start 08/13/16 at 07:05; Stop 08/13/16 at 07:06; Status DC Magnesium Hydroxide (Milk Of Magnesia) 30 ml DAILYPRN PRN PO CONSTIPATION; Start 08/13/16 at 10:30; Stop 09/12/16 at 10:29 Meloxicam (Mobic) 7.5 mg BID PO Last administered on 08/16/16 08:13; Start 08/13 at 09:00; Stop 09/12/16 at 08:59 Metoprolol Succinate (TopROL XL) 50 mg DAILY PO Last administered on 08/16/16 08:12; Start 08/13/16 at 09:00; Stop 09/12/16 at 08:59 Miscellaneous (Unresolved Patient Own Med Order) SEE LABEL COMMENTS UNRESOLVED XX ; Start 08/13/16 at 00:01; Stop 09/12/16 at 00:00 Montelukast Sodium (Singulair) 10 mg DAILY PO Last administered on 08/16/16 08: 13; Start 08/13/16 at 09:00; Stop 09/12/16 at 08:59 Multivitamins (Theragram-M) 1 tab DAILY PO Last administered on 08/16/16 08:13 ; Start 08/13/16 at 09:00; Stop 09/12/16 at 08:59 Naltrexone HCl (Revia) 50 mg DAILY PO Last administered on 08/16/16 08:13; Start 08/15/16 at 09:00; Stop 09/14/16 at 08:59 Nicotine (Nicoderm Cq 21mg) 1 patch DAILY TD Last administered on 08/15/16 09: 00; Start 08/13/16 at 09:00; Stop 08/15/16 at 13:28; Status DC Nicotine (Nicorette) 2 mg Q2HP PRN PO SMOKING CESSATION Last administered on 09:29; Start 08/15/16 at 13:30; Stop 09/14/16 at 13:29 Non-Formulary Medication ( See Comment Field Below ) REMOVE LIDODERM PATCH DAILY@21 XX Last administered on 08/15/16 20:16; Start 08/15/16 at 21:00; Stop 09/14/16 at 20:59 Olanzapine (ZyPREXA) 5 mg Q6HP PRN PO AGITATION/ANXIETY Last administered on 09:29; Start 08/13/16 at 16:30; Stop 09/12/16 at 16:29 Omeprazole (PriLOSEC) 20 mg DAILY PO Last administered on 08/16/16 08:13; Start 08/13/16 at 09:00; Stop 09/12/16 at 08:59 Patient Own Medication (Patient'S Own Med) Etanercept (Enbrel) 50 mg... Sa@0900 LA ; Start 08/20/16 at 09:00; Stop 09/19/16 at 08:59; Status Future Hold Salmeterol Xinafoate/ Fluticasone (Advair Diskus 500/50) 1 puff BID INH Last administered on 08/16/16 08:12; Start 08/13/16 at 09:00; Stop 09/12/16 at 08:59 Sertraline HCl (Zoloft) 100 mg DAILY PO Last administered on 08/16/16 08:13; Start 08/13/16 at 09:00; Stop 09/12/16 at 08:59 Thiamine HCl (Thiamine HCl) 100 mg BID PO Last administered on 08/15/16 20:12; Start 08/13/16 at 09:00; Stop 08/15/16 at 23:59; Status DC Trazodone HCl (Desyrel) 100 mg QHSP PRN PO INSOMNIA Last administered on 21:59; Start 08/13/16 at 10:00; Stop 08/13/16 at 22:54; Status DC Trazodone HCl (Desyrel) 150 mg QHSP PRN PO INSOMNIA Last administered on 21:27; Start 08/13/16 at 23:00; Stop 09/12/16 at 22:59 Allergies Coded Allergies: Valproic Acid (Verified Allergy, Severe, mouth/throat swelling, 07/10/16) Sulfa Antibiotics (Verified Allergy, Intermediate, body rash, 07/10/16) Paroxetine (Unverified Adverse Reaction, Intermediate, Akathesia, 07/15/16) Quetiapine (Verified Adverse Reaction, Unknown, amnesia, 07/15/16) Patient report Maura Gabriel Aug 16, 2016 10:10
[2016-08-16] MEDS: hydrOXYzine 50 MG TAB PO PRN ×2 (12:07→20:13)
[2016-08-16 17:45] VITALS: BP 126/59
[2016-08-16 18:00] VITALS: BP 116/62
[2016-08-16] MEDS: ALBUTEROL 90 MCG/ACT 8GM HFA INHALER INH PRN (20:10)
[2016-08-16] MEDS: ACETAMINOPHEN TAB 650MG DOSE (2X325MG) PO PRN (20:11)
[2016-08-16] MEDS: **NOTE PATIENT COMMENT** MISC XX SCH (20:15)
[2016-08-16] MEDS: traZODone 50 MG TAB PO PRN (23:01)
[2016-08-17] MEDS: OLANZapine 5 MG TAB PO PRN ×3 (02:26→20:07)
[2016-08-17] MEDS: ACETAMINOPHEN TAB 650MG DOSE (2X325MG) PO PRN ×3 (02:26→22:31)
[2016-08-17 07:09] VITALS: BP 118/62
[2016-08-17] MEDS: GABAPENTIN 400 MG CAP PO SCH ×3 (08:32→20:08)
[2016-08-17] MEDS: FOLIC ACID 1 MG TAB PO SCH (08:32)
[2016-08-17] MEDS: SERTRALINE 100 MG TAB PO SCH (08:32)
[2016-08-17] MEDS: OMEPRAZOLE 20 MG CAP PO SCH (08:32)
[2016-08-17] MEDS: MONTELUKAST 10 MG TAB PO SCH (08:32)
[2016-08-17] MEDS: chlordiazePOXIDE 25 MG CAP PO SCH (08:32)
[2016-08-17] MEDS: MELOXICAM (MOBIC) 7.5 MG TAB PO SCH ×2 (08:32→20:08)
[2016-08-17] MEDS: MULTIVITAMINS/MINERALS THERAP 1 TAB PO SCH (08:32)
[2016-08-17] MEDS: ADVAIR DISKUS 500/50 INH PWD INH SCH ×2 (08:34→20:07)
[2016-08-17] MEDS: METOPROLOL SUCC (TopROL XL) 50MG **XL** TAB PO SCH (08:34)
[2016-08-17] MEDS: LIDOCAINE 5% (LIDODERM) PATCH TD SCH (08:37)
[2016-08-17] MEDS: BACITRACIN OINT 30GM TOP SCH ×2 (08:38→20:05)
[2016-08-17] MEDS: NALTREXONE 50 MG TAB PO SCH (08:38)
[2016-08-17 13:35] VITALS: BP 138/67
[2016-08-17] MEDS: hydrOXYzine 50 MG TAB PO PRN ×2 (13:35→23:10)
[2016-08-17] MEDS: NICOTINE POLACRILEX 2 MG GUM PO PRN ×2 (16:12→20:10)
--- NOTE | 2016-08-17 16:35 | MHIPNPDOC ---
[facility] Progress Note Progress Note DATE OF SERVICE: 08/17/16 HISTORY: 30-year-old female on her fifth day at the inpatient mental health for suicidal ideation after a breakup with girlfriend approximately one month ago VITAL SIGNS: See below. NEW TEST RESULTS: None CURRENT MEDICATIONS: See below. MENTAL STATUS EXAMINATION: Patient is a 30-year-old female, dressed in personal clothes, with good hygiene , fair eye contact, cooperative, seeking an increase in Atarax for anxiety ( increase it to 100 mg by mouth 3 times a day) Speech: Fluid, coherent Language skills are fair Thought processes including: goal directed Thought content: About being anxious and needing more medications . Abstract reasoning, and computation: good. Description of associations: Not loose Description of abnormal or psychotic thoughts: Denies psychotic thoughts , denies auditory or visual hallucinations.Pt denies suicide ideation, intent or plan.. Judgment: Poor Insight: poor. Orientation: oriented to person, place, surroundings and time. Recent and remote memory: intact Attention span and concentration: adequate Fund of knowledge: Fair Mood: anxious. Affect: Congruent to mood DIAGNOSES: 1. Unspecified depressive disorder. 2. Rule out substance-induced mood disorder. 3. Marijuana use disorder 4. Alcohol use disorder ASSESSMENT: Patient's is still seeking medication increase. This time she has requested Atarax to be increased. She is less sleepy and less drowsy that she was 2 days ago. Her judgment is still very poor, her insight is poor and so far her impulse control has been under control. She has manifested anxiety and urge to cut herself, but she has been able to control those urges. No medication changes at this time. She has been attending some groups and she reports they have been useful. She reports doing she hasn't spoken to her ex girlfriend, she believes she is already seeing someone else and for that reason she has concluded she needs to keep going with her life and let this breakup issue go. MANAGEMENT PLAN: Will encourage her to continue attending groups, comply with her medications and continue with individual psychotherapy. TIME SPENT: 15 minutes. Vital Signs Vital Signs Date Time Temp Pulse Resp B/P (MAP) Pulse Ox O2 Delivery O2 Flow Rate FiO2 08/17/16 13:35 85 138/67 (90) 08/17/16 07:09 97.8 18 Room Air 08/16/16 17:45 96 Current Medications Current Medications Acetaminophen (Tylenol Tab) 650 mg Q6HP PRN PO PAIN / FEVER Last administered on 08/17/16 16:11; Start 08/13/16 at 10:30; Stop 09/12/16 at 10:29 Al Hydrox/Mg Hydrox/Simethicone (Mylanta) 30 ml Q6HP PRN PO HEARTBURN; Start at 10:30; Stop 09/12/16 at 10:29 Albuterol Sulfate (Proventil, Ventolin Hfa) 2 puff Q4HP PRN INH SHORTNESS OF BREATH Last administered on 08/16/16 20:10; Start 08/13/16 at 10:00; Stop at 09:59 Bacitracin (Bacitracin Oint) apply to right fore... BID TOP Last administered on 08/16/16 08:12; Start 08/14/16 at 21:00; Stop 09/13/16 at 20:59 Chlordiazepoxide (Librium) 25 mg BID PO Last administered on 08/15/16 08:59; Start 08/14/16 at 21:00; Stop 08/15/16 at 13:19; Status DC Chlordiazepoxide (Librium) 25 mg DAILY PO Last administered on 08/17/16 08:32; Start 08/16/16 at 09:00; Stop 08/21/16 at 20:59 Chlordiazepoxide (Librium) 25 mg TID PO Last administered on 08/14/16 08:51; Start 08/13/16 at 09:00; Stop 08/14/16 at 09:41; Status DC Chlordiazepoxide (Librium) 25 mg TIDP PRN PO Benzo/ETOH withdrawal sxs; Start 08/13/16 at 10:00; Stop 08/14/16 at 09:41; Status DC Folic Acid (Folic Acid) 1 mg DAILY PO Last administered on 08/17/16 08:32; Start 08/13/16 at 09:00; Stop 09/12/16 at 08:59 Gabapentin (Neurontin) 800 mg TID PO Last administered on 08/17/16 16:11; Start 08/13/16 at 09:00; Stop 09/12/16 at 08:59 Home Med (Med Rec Complete!) ASDIRECTED XX ; Start 08/13/16 at 07:30; Stop at 07:30; Status DC Hydroxyzine HCl (Atarax) 50 mg TIDP PRN PO ANXIETY/AGITATION Last administered on 08/17/16 13:35; Start 08/13/16 at 10:00; Stop 09/12/16 at 09:59 Lidocaine (Lidoderm Patch) 1 patch DAILY TD Last administered on 08/17/16 08:37 ; Start 08/15/16 at 09:00; Stop 09/14/16 at 08:59 Lorazepam (Ativan) 2 mg STAT STAT PO Last administered on 08/13/16 07:10; Start 08/13/16 at 07:05; Stop 08/13/16 at 07:06; Status DC Magnesium Hydroxide (Milk Of Magnesia) 30 ml DAILYPRN PRN PO CONSTIPATION; Start 08/13/16 at 10:30; Stop 09/12/16 at 10:29 Meloxicam (Mobic) 7.5 mg BID PO Last administered on 08/17/16 08:32; Start 08/13 at 09:00; Stop 09/12/16 at 08:59 Metoprolol Succinate (TopROL XL) 50 mg DAILY PO Last administered on 08/17/16 08:34; Start 08/13/16 at 09:00; Stop 09/12/16 at 08:59 Miscellaneous (Unresolved Patient Own Med Order) SEE LABEL COMMENTS UNRESOLVED XX ; Start 08/13/16 at 00:01; Stop 09/12/16 at 00:00 Montelukast Sodium (Singulair) 10 mg DAILY PO Last administered on 08/17/16 08: 32; Start 08/13/16 at 09:00; Stop 09/12/16 at 08:59 Multivitamins (Theragram-M) 1 tab DAILY PO Last administered on 08/17/16 08:32 ; Start 08/13/16 at 09:00; Stop 09/12/16 at 08:59 Naltrexone HCl (Revia) 50 mg DAILY PO Last administered on 08/16/16 08:13; Start 08/15/16 at 09:00; Stop 09/14/16 at 08:59 Nicotine (Nicoderm Cq 21mg) 1 patch DAILY TD Last administered on 08/15/16 09: 00; Start 08/13/16 at 09:00; Stop 08/15/16 at 13:28; Status DC Nicotine (Nicorette) 2 mg Q2HP PRN PO SMOKING CESSATION Last administered on 16:12; Start 08/15/16 at 13:30; Stop 09/14/16 at 13:29 Non-Formulary Medication ( See Comment Field Below ) REMOVE LIDODERM PATCH DAILY@21 XX Last administered on 08/16/16 20:15; Start 08/15/16 at 21:00; Stop 09/14/16 at 20:59 Olanzapine (ZyPREXA) 5 mg Q6HP PRN PO AGITATION/ANXIETY Last administered on 12:18; Start 08/13/16 at 16:30; Stop 09/12/16 at 16:29 Omeprazole (PriLOSEC) 20 mg DAILY PO Last administered on 08/17/16 08:32; Start 08/13/16 at 09:00; Stop 09/12/16 at 08:59 Patient Own Medication (Patient'S Own Med) Etanercept (Enbrel) 50 mg... Sa@0900 SC ; Start 08/20/16 at 09:00; Stop 09/19/16 at 08:59; Status Future Hold Salmeterol Xinafoate/ Fluticasone (Advair Diskus 500/50) 1 puff BID INH Last administered on 08/17/16 08:34; Start 08/13/16 at 09:00; Stop 09/12/16 at 08:59 Sertraline HCl (Zoloft) 100 mg DAILY PO Last administered on 08/17/16 08:32; Start 08/13/16 at 09:00; Stop 08/17/16 at 15:30; Status DC Sertraline HCl (Zoloft) 150 mg DAILY PO ; Start 08/18/16 at 09:00; Stop 09/17/16 at 08:59 Thiamine HCl (Thiamine HCl) 100 mg BID PO Last administered on 08/15/16 20:12; Start 08/13/16 at 09:00; Stop 08/15/16 at 23:59; Status DC Trazodone HCl (Desyrel) 100 mg QHSP PRN PO INSOMNIA Last administered on 21:59; Start 08/13/16 at 10:00; Stop 08/13/16 at 22:54; Status DC Trazodone HCl (Desyrel) 150 mg QHSP PRN PO INSOMNIA Last administered on 23:01; Start 08/13/16 at 23:00; Stop 09/12/16 at 22:59 Allergies Coded Allergies: Valproic Acid (Verified Allergy, Severe, mouth/throat swelling, 07/10/16) Sulfa Antibiotics (Verified Allergy, Intermediate, body rash, 07/10/16) Paroxetine (Unverified Adverse Reaction, Intermediate, Akathesia, 07/15/16) Quetiapine (Verified Adverse Reaction, Unknown, amnesia, 07/15/16) Patient report DANGELO LEMUS MD Aug 17, 2016 16:34
[2016-08-17 18:00] VITALS: BP 135/72
[2016-08-17] MEDS: **NOTE PATIENT COMMENT** MISC XX SCH (20:05)
[2016-08-17] MEDS: ALBUTEROL 90 MCG/ACT 8GM HFA INHALER INH PRN (20:07)
[2016-08-17] MEDS: traZODone 50 MG TAB PO PRN (23:10)
[2016-08-18] MEDS: ACETAMINOPHEN TAB 650MG DOSE (2X325MG) PO PRN ×2 (06:22→13:26)
[2016-08-18 06:28] VITALS: BP 131/63
[2016-08-18] MEDS: ADVAIR DISKUS 500/50 INH PWD INH SCH ×2 (08:12→20:27)
[2016-08-18] MEDS: LIDOCAINE 5% (LIDODERM) PATCH TD SCH (08:12)
[2016-08-18] MEDS: MELOXICAM (MOBIC) 7.5 MG TAB PO SCH ×2 (08:13→20:27)
[2016-08-18] MEDS: MONTELUKAST 10 MG TAB PO SCH (08:13)
[2016-08-18] MEDS: SERTRALINE HCL 50 MG TAB PO SCH (08:13)
[2016-08-18] MEDS: OMEPRAZOLE 20 MG CAP PO SCH (08:13)
[2016-08-18] MEDS: BACITRACIN OINT 30GM TOP SCH ×2 (08:13→20:24)
[2016-08-18] MEDS: FOLIC ACID 1 MG TAB PO SCH (08:13)
[2016-08-18] MEDS: chlordiazePOXIDE 25 MG CAP PO SCH (08:13)
[2016-08-18] MEDS: MULTIVITAMINS/MINERALS THERAP 1 TAB PO SCH (08:13)
[2016-08-18] MEDS: GABAPENTIN 400 MG CAP PO SCH ×3 (08:13→20:27)
[2016-08-18] MEDS: METOPROLOL SUCC (TopROL XL) 50MG **XL** TAB PO SCH (08:15)
[2016-08-18] MEDS: NALTREXONE 50 MG TAB PO SCH (08:15)
[2016-08-18] MEDS: OLANZapine 5 MG TAB PO PRN ×3 (08:17→23:11)
[2016-08-18] MEDS: hydrOXYzine 50 MG TAB PO PRN ×2 (09:49→20:27)
[2016-08-18 11:46] VITALS: BP 124/61
[2016-08-18] MEDS: NICOTINE POLACRILEX 2 MG GUM PO PRN (15:25)
[2016-08-18 18:18] VITALS: BP 108/58
--- NOTE | 2016-08-18 20:03 | MHIPNPDOC ---
[facility] Progress Note Progress Note DATE OF SERVICE: 08/18/16 HISTORY: 30-year-old female who was admitted for suicidal ideation after breakup with girlfriend approximately one month ago. Patient has a history of cutting whe stressed out. She reports one of the tiles in her bathroom was broken and she gave it to the Nurses, when she could have kept it but she didn' t because she knows it will only hurt her. VITAL SIGNS: See below. NEW TEST RESULTS: None CURRENT MEDICATIONS: See below. MENTAL STATUS EXAMINATION: Patient is a 30-year-old female, dressed in personal clothes, good eye contact, pleasant, cooperative, less anxious Speech: Fluid, coherent Language skills are fair Thought processes including: Intact Thought content: About using Klonopin 1.5 mgs at home, [facility] [place]. Abstract reasoning, and computation: good. Description of associations: Not loose Description of abnormal or psychotic thoughts: Denies psychotic thoughts , denies auditory or visual hallucinations.Pt denies suicide ideation, intent or plan.. Judgment: Improving Insight: Improving Orientation: oriented x 3 Recent and remote memory: intact Attention span and concentration: Fair Fund of knowledge: Fair Mood: Less anxious Affect: Congruent to mood DIAGNOSES: 1. Unspecified depressive disorder. 2. Rule out substance-induced mood disorder. 3. Marijuana use disorder 4. Alcohol use disorder ASSESSMENT: She has been reported as very anxious by bar, so this remote mortgage underwriter decided to give her Klonopin 0.5 mgs. PO TID because she says she takes 1.5 mgs. Po QD when she's at home. She also has sekked an increase in Atarax but his remote mortgage underwriter explained to her I can't give her more Atars and I can give her Klonopin once I taper and discontinue Librium. She has agreed to that. MANAGEMENT PLAN: Will continue with same treatment plan. Patient went to yoga and meditation today, even when she has said she doesn't like these groups. She wants to get better and is making the effort. Will continue encouraging her. TIME SPENT: 15 minutes. Vital Signs Vital Signs Date Time Temp Pulse Resp B/P (MAP) Pulse Ox O2 Delivery O2 Flow Rate FiO2 08/18/16 18:18 97.9 71 16 108/58 (75) 08/17/16 07:09 Room Air 08/16/16 17:45 96 Current Medications Current Medications Acetaminophen (Tylenol Tab) 650 mg Q6HP PRN PO PAIN / FEVER Last administered on 08/18/16 13:26; Start 08/13/16 at 10:30; Stop 09/12/16 at 10:29 Al Hydrox/Mg Hydrox/Simethicone (Mylanta) 30 ml Q6HP PRN PO HEARTBURN; Start at 10:30; Stop 09/12/16 at 10:29 Albuterol Sulfate (Proventil, Ventolin Hfa) 2 puff Q4HP PRN INH SHORTNESS OF BREATH Last administered on 08/17/16 20:07; Start 08/13/16 at 10:00; Stop at 09:59 Bacitracin (Bacitracin Oint) apply to right fore... BID TOP Last administered on 08/16/16 08:12; Start 08/14/16 at 21:00; Stop 09/13/16 at 20:59 Chlordiazepoxide (Librium) 10 mg DAILY PO ; Start 08/19/16 at 09:00; Stop at 08:59 Chlordiazepoxide (Librium) 25 mg BID PO Last administered on 08/15/16 08:59; Start 08/14/16 at 21:00; Stop 08/15/16 at 13:19; Status DC Chlordiazepoxide (Librium) 25 mg DAILY PO Last administered on 08/18/16 08:13; Start 08/16/16 at 09:00; Stop 08/18/16 at 19:51; Status DC Chlordiazepoxide (Librium) 25 mg TID PO Last administered on 08/14/16 08:51; Start 08/13/16 at 09:00; Stop 08/14/16 at 09:41; Status DC Chlordiazepoxide (Librium) 25 mg TIDP PRN PO Benzo/ETOH withdrawal sxs; Start 08/13/16 at 10:00; Stop 08/14/16 at 09:41; Status DC Clonazepam (KlonoPIN) 0.5 mg TID PO ; Start 08/18/16 at 21:00; Stop 08/25/16 at 20:59 Folic Acid (Folic Acid) 1 mg DAILY PO Last administered on 08/18/16 08:13; Start 08/13/16 at 09:00; Stop 09/12/16 at 08:59 Gabapentin (Neurontin) 800 mg TID PO Last administered on 08/18/16 15:25; Start 08/13/16 at 09:00; Stop 09/12/16 at 08:59 Home Med (Med Rec Complete!) ASDIRECTED XX ; Start 08/13/16 at 07:30; Stop at 07:30; Status DC Hydroxyzine HCl (Atarax) 50 mg TIDP PRN PO ANXIETY/AGITATION Last administered on 08/18/16 09:49; Start 08/13/16 at 10:00; Stop 09/12/16 at 09:59 Lidocaine (Lidoderm Patch) 1 patch DAILY TD Last administered on 08/18/16 08:12 ; Start 08/15/16 at 09:00; Stop 09/14/16 at 08:59 Lorazepam (Ativan) 2 mg STAT STAT PO Last administered on 08/13/16 07:10; Start 08/13/16 at 07:05; Stop 08/13/16 at 07:06; Status DC Magnesium Hydroxide (Milk Of Magnesia) 30 ml DAILYPRN PRN PO CONSTIPATION; Start 08/13/16 at 10:30; Stop 09/12/16 at 10:29 Meloxicam (Mobic) 7.5 mg BID PO Last administered on 08/18/16 08:13; Start 08/13 at 09:00; Stop 09/12/16 at 08:59 Metoprolol Succinate (TopROL XL) 50 mg DAILY PO Last administered on 08/18/16 08:15; Start 08/13/16 at 09:00; Stop 09/12/16 at 08:59 Miscellaneous (Unresolved Patient Own Med Order) SEE LABEL COMMENTS UNRESOLVED XX ; Start 08/13/16 at 00:01; Stop 09/12/16 at 00:00 Montelukast Sodium (Singulair) 10 mg DAILY PO Last administered on 08/18/16 08: 13; Start 08/13/16 at 09:00; Stop 09/12/16 at 08:59 Multivitamins (Theragram-M) 1 tab DAILY PO Last administered on 08/18/16 08:13 ; Start 08/13/16 at 09:00; Stop 09/12/16 at 08:59 Naltrexone HCl (Revia) 50 mg DAILY PO Last administered on 08/18/16 08:15; Start 08/15/16 at 09:00; Stop 09/14/16 at 08:59 Nicotine (Nicoderm Cq 21mg) 1 patch DAILY TD Last administered on 08/15/16 09: 00; Start 08/13/16 at 09:00; Stop 08/15/16 at 13:28; Status DC Nicotine (Nicorette) 2 mg Q2HP PRN PO SMOKING CESSATION Last administered on 15:25; Start 08/15/16 at 13:30; Stop 09/14/16 at 13:29 Non-Formulary Medication ( See Comment Field Below ) REMOVE LIDODERM PATCH DAILY@21 XX Last administered on 08/17/16 20:05; Start 08/15/16 at 21:00; Stop 09/14/16 at 20:59 Olanzapine (ZyPREXA) 5 mg Q6HP PRN PO AGITATION/ANXIETY Last administered on 15:25; Start 08/13/16 at 16:30; Stop 09/12/16 at 16:29 Omeprazole (PriLOSEC) 20 mg DAILY PO Last administered on 08/18/16 08:13; Start 08/13/16 at 09:00; Stop 09/12/16 at 08:59 Patient Own Medication (Patient'S Own Med) Etanercept (Enbrel) 50 mg... Sa@0900 [place] ; Start 08/20/16 at 09:00; Stop 09/19/16 at 08:59; Status Future Hold Salmeterol Xinafoate/ Fluticasone (Advair Diskus 500/50) 1 puff BID INH Last administered on 08/18/16 08:12; Start 08/13/16 at 09:00; Stop 09/12/16 at 08:59 Sertraline HCl (Zoloft) 100 mg DAILY PO Last administered on 08/17/16 08:32; Start 08/13/16 at 09:00; Stop 08/17/16 at 15:30; Status DC Sertraline HCl (Zoloft) 150 mg DAILY PO Last administered on 08/18/16 08:13; Start 08/18/16 at 09:00; Stop 09/17/16 at 08:59 Thiamine HCl (Thiamine HCl) 100 mg BID PO Last administered on 08/15/16 20:12; Start 08/13/16 at 09:00; Stop 08/15/16 at 23:59; Status DC Trazodone HCl (Desyrel) 100 mg QHSP PRN PO INSOMNIA Last administered on 21:59; Start 08/13/16 at 10:00; Stop 08/13/16 at 22:54; Status DC Trazodone HCl (Desyrel) 150 mg QHSP PRN PO INSOMNIA Last administered on 23:10; Start 08/13/16 at 23:00; Stop 09/12/16 at 22:59 Allergies Coded Allergies: Valproic Acid (Verified Allergy, Severe, mouth/throat swelling, 07/10/16) Sulfa Antibiotics (Verified Allergy, Intermediate, body rash, 07/10/16) Paroxetine (Unverified Adverse Reaction, Intermediate, Akathesia, 07/15/16) Quetiapine (Verified Adverse Reaction, Unknown, amnesia, 07/15/16) Patient report DANGELO LEMUS MD Aug 18, 2016 20:03
[2016-08-18] MEDS: clonazePAM 0.5 MG TAB PO SCH (20:27)
[2016-08-18] MEDS: **NOTE PATIENT COMMENT** MISC XX SCH (20:28)
[2016-08-18] MEDS: traZODone 50 MG TAB PO PRN (23:11)
[2016-08-19 06:19] VITALS: BP 137/85
[2016-08-19] MEDS: GABAPENTIN 400 MG CAP PO SCH ×3 (08:10→20:15)
[2016-08-19] MEDS: clonazePAM 0.5 MG TAB PO SCH ×3 (08:10→20:15)
[2016-08-19] MEDS: FOLIC ACID 1 MG TAB PO SCH (08:10)
[2016-08-19] MEDS: MULTIVITAMINS/MINERALS THERAP 1 TAB PO SCH (08:10)
[2016-08-19] MEDS: OMEPRAZOLE 20 MG CAP PO SCH (08:10)
[2016-08-19] MEDS: SERTRALINE HCL 50 MG TAB PO SCH (08:10)
[2016-08-19] MEDS: MELOXICAM (MOBIC) 7.5 MG TAB PO SCH ×2 (08:10→20:15)
[2016-08-19] MEDS: MONTELUKAST 10 MG TAB PO SCH (08:10)
[2016-08-19] MEDS: NALTREXONE 50 MG TAB PO SCH (08:10)
[2016-08-19] MEDS: BACITRACIN OINT 30GM TOP SCH ×2 (08:11→20:11)
[2016-08-19] MEDS: ADVAIR DISKUS 500/50 INH PWD INH SCH ×2 (08:11→20:14)
[2016-08-19] MEDS: METOPROLOL SUCC (TopROL XL) 50MG **XL** TAB PO SCH (08:11)
[2016-08-19] MEDS: LIDOCAINE 5% (LIDODERM) PATCH TD SCH (08:12)
[2016-08-19] MEDS: NICOTINE POLACRILEX 2 MG GUM PO PRN ×2 (08:12→20:15)
[2016-08-19] MEDS: OLANZapine 5 MG TAB PO PRN ×2 (11:32→18:25)
[2016-08-19 12:00] VITALS: BP 106/67
[2016-08-19 18:00] VITALS: BP 134/65
[2016-08-19] MEDS: ACETAMINOPHEN TAB 650MG DOSE (2X325MG) PO PRN (18:24)
[2016-08-19] MEDS: **NOTE PATIENT COMMENT** MISC XX SCH (20:11)
[2016-08-19] MEDS: traZODone 50 MG TAB PO PRN (20:15)
[2016-08-19] MEDS: hydrOXYzine 25 MG TAB PO PRN (20:15)
[2016-08-19 20:44] VITALS: BP 100/70
[2016-08-20] MEDS: ACETAMINOPHEN TAB 650MG DOSE (2X325MG) PO PRN ×2 (06:12→19:30)
[2016-08-20 06:33] VITALS: BP 129/60
[2016-08-20] MEDS: ADVAIR DISKUS 500/50 INH PWD INH SCH ×2 (08:21→20:11)
[2016-08-20] MEDS: OMEPRAZOLE 20 MG CAP PO SCH (08:22)
[2016-08-20] MEDS: MONTELUKAST 10 MG TAB PO SCH (08:22)
[2016-08-20] MEDS: NALTREXONE 50 MG TAB PO SCH (08:22)
[2016-08-20] MEDS: FOLIC ACID 1 MG TAB PO SCH (08:22)
[2016-08-20] MEDS: SERTRALINE HCL 50 MG TAB PO SCH (08:22)
[2016-08-20] MEDS: MELOXICAM (MOBIC) 7.5 MG TAB PO SCH ×2 (08:22→20:11)
[2016-08-20] MEDS: clonazePAM 0.5 MG TAB PO SCH ×3 (08:22→20:11)
[2016-08-20] MEDS: METOPROLOL SUCC (TopROL XL) 50MG **XL** TAB PO SCH (08:22)
[2016-08-20] MEDS: GABAPENTIN 400 MG CAP PO SCH ×3 (08:22→20:11)
[2016-08-20] MEDS: LIDOCAINE 5% (LIDODERM) PATCH TD SCH (08:22)
[2016-08-20] MEDS: MULTIVITAMINS/MINERALS THERAP 1 TAB PO SCH (08:22)
[2016-08-20] MEDS: NICOTINE POLACRILEX 2 MG GUM PO PRN ×4 (08:23→19:29)
[2016-08-20] MEDS: BACITRACIN OINT 30GM TOP SCH ×2 (08:26→20:13)
[2016-08-20] MEDS ORDERED: ENBREL SC SCH (09:00)
--- NOTE | 2016-08-20 09:22 | IPN ---
DATE OF SERVICE: 08/19/2016 30-year-old female who was admitted for suicidal ideation after breakup with girlfriend more than 1 month ago. The patient has a longstanding history of psychiatric problems, of cutting herself, and suicidal thoughts. She has been at the inpatient mental health unit on numerous occasions. SUBJECTIVE: The patient reports feeling better. Denies medication side effects. Denies having explosive or angry outbursts. Denies suicidal or homicidal ideation. Denies psychosis. She states that she would like to have _CBT AND DBT once she gets discharged, and she would like to go to [place] for that if she can get the services, transportation to get her there. She reports she feels bad when she cannot get her girlfriend and the breakup out of her head, and that is when she becomes depressed. She also reports the same thing that she did yesterday, that she found a tile in her bathroom, and she could have cut herself with this, but she decided not to, and instead she gave the broken tile to the nurses, and for her as it would be for everybody else, that is a sign of improvement. OBJECTIVE: She is alert, oriented times three, dressed in hospital clothes, pleasant, and cooperative. Her eye contact is good. Mood is less depressed and less anxious, and affect is brighter, congruent to mood, not irritable, but slightly anxious. Her speech is soft, coherent, spontaneous. Thought process is intact. Thought content is coherent. She does not report auditory or visual hallucinations. Denies suicidal or homicidal ideations and denies thought delusions. Her attention and concentration are fair. Recent and remote memory are fair. Insight and judgment are still poor. She continues to blame everything on her ex-girlfriend and is not willing to take responsibility for the problems that she had in her relationship. Impulse control is fair. ASSESSMENT: The patient is improving. She seems to be more insightful. She has been attending groups. PLAN: The patient should continue on the same medications, attending individual and group psychotherapy. If the patient is stable enough next week, discharge will be considered once all services are in place and close appointment is in place, too. Will followup. HERO
[2016-08-20] MEDS: OLANZapine 5 MG TAB PO PRN ×3 (10:02→23:10)
[2016-08-20] MEDS: hydrOXYzine 25 MG TAB PO PRN ×2 (13:04→19:31)
[2016-08-20 18:00] VITALS: BP 136/71
[2016-08-20] MEDS: ALBUTEROL 90 MCG/ACT 8GM HFA INHALER INH PRN (20:12)
[2016-08-20] MEDS: traZODone 50 MG TAB PO PRN (20:14)
[2016-08-20] MEDS: **NOTE PATIENT COMMENT** MISC XX SCH (20:17)
[2016-08-20 20:47] VITALS: BP 132/74
[2016-08-21] MEDS: ACETAMINOPHEN TAB 650MG DOSE (2X325MG) PO PRN ×2 (05:05→20:06)
[2016-08-21] MEDS: OLANZapine 5 MG TAB PO PRN ×2 (05:43→18:16)
[2016-08-21 06:00] VITALS: BP 127/66
[2016-08-21] MEDS: clonazePAM 0.5 MG TAB PO SCH ×3 (08:01→20:04)
[2016-08-21] MEDS: NALTREXONE 50 MG TAB PO SCH (08:02)
[2016-08-21] MEDS: GABAPENTIN 400 MG CAP PO SCH ×3 (08:02→20:04)
[2016-08-21] MEDS: MULTIVITAMINS/MINERALS THERAP 1 TAB PO SCH (08:02)
[2016-08-21] MEDS: METOPROLOL SUCC (TopROL XL) 50MG **XL** TAB PO SCH (08:02)
[2016-08-21] MEDS: LIDOCAINE 5% (LIDODERM) PATCH TD SCH (08:02)
[2016-08-21] MEDS: OMEPRAZOLE 20 MG CAP PO SCH (08:02)
[2016-08-21] MEDS: MELOXICAM (MOBIC) 7.5 MG TAB PO SCH ×2 (08:02→20:04)
[2016-08-21] MEDS: FOLIC ACID 1 MG TAB PO SCH (08:02)
[2016-08-21] MEDS: ADVAIR DISKUS 500/50 INH PWD INH SCH ×2 (08:02→20:04)
[2016-08-21] MEDS: MONTELUKAST 10 MG TAB PO SCH (08:03)
[2016-08-21] MEDS: SERTRALINE HCL 50 MG TAB PO SCH (08:03)
[2016-08-21] MEDS: BACITRACIN OINT 30GM TOP SCH ×2 (08:41→20:07)
[2016-08-21 10:27] VITALS: BP 117/55
[2016-08-21] MEDS: hydrOXYzine 25 MG TAB PO PRN ×2 (15:18→21:08)
[2016-08-21 18:00] VITALS: BP 136/78
[2016-08-21] MEDS: NICOTINE POLACRILEX 2 MG GUM PO PRN (18:16)
[2016-08-21] MEDS: traZODone 50 MG TAB PO PRN (20:04)
[2016-08-21] MEDS: **NOTE PATIENT COMMENT** MISC XX SCH (20:07)
[2016-08-22] MEDS: OLANZapine 5 MG TAB PO PRN ×3 (01:23→14:32)
[2016-08-22] MEDS: ACETAMINOPHEN TAB 650MG DOSE (2X325MG) PO PRN ×3 (06:27→21:56)
[2016-08-22 06:50] VITALS: BP 123/69
[2016-08-22] MEDS: GABAPENTIN 400 MG CAP PO SCH ×3 (08:19→20:33)
[2016-08-22] MEDS: MULTIVITAMINS/MINERALS THERAP 1 TAB PO SCH (08:19)
[2016-08-22] MEDS: clonazePAM 0.5 MG TAB PO SCH ×2 (08:19→20:33)
[2016-08-22] MEDS: NICOTINE POLACRILEX 2 MG GUM PO PRN ×2 (08:19→14:33)
[2016-08-22] MEDS: MELOXICAM (MOBIC) 7.5 MG TAB PO SCH ×2 (08:19→20:33)
[2016-08-22] MEDS: FOLIC ACID 1 MG TAB PO SCH (08:19)
[2016-08-22] MEDS: MONTELUKAST 10 MG TAB PO SCH (08:19)
[2016-08-22] MEDS: METOPROLOL SUCC (TopROL XL) 50MG **XL** TAB PO SCH (08:20)
[2016-08-22] MEDS: LIDOCAINE 5% (LIDODERM) PATCH TD SCH (08:20)
[2016-08-22] MEDS: NALTREXONE 50 MG TAB PO SCH (08:22)
[2016-08-22] MEDS: SERTRALINE HCL 50 MG TAB PO SCH (08:22)
[2016-08-22] MEDS: OMEPRAZOLE 20 MG CAP PO SCH (08:22)
[2016-08-22] MEDS: ADVAIR DISKUS 500/50 INH PWD INH SCH ×2 (08:23→20:33)
[2016-08-22] MEDS: BACITRACIN OINT 30GM TOP SCH ×2 (08:24→20:30)
[2016-08-22] MEDS: hydrOXYzine 25 MG TAB PO PRN ×2 (09:39→21:42)
[2016-08-22] MEDS: LIDOCAINE 5% (LIDODERM) PATCH TD PRN (10:01)
[2016-08-22 11:37] VITALS: BP 111/53
[2016-08-22] MEDS ORDERED: clonazePAM 0.5 MG TAB PO ONE (14:30)
[2016-08-22 18:00] VITALS: BP 121/72
[2016-08-22] MEDS: **NOTE PATIENT COMMENT** MISC XX SCH ×2 (20:33)
--- NOTE | 2016-08-22 21:25 | IPN ---
DATE: 08/22/2016 30-year-old female admitted for suicidal ideation after breakup with girlfriend more than 1 month ago. Patient has a longstanding history of psychiatric problems, with multiple admissions to the inpatient mental health unit. She has a diagnosis of borderline personality disorder and she has been admitted on numerous occasions for cutting herself and harming herself in different ways. SUBJECTIVE: The patient reports that she feels extremely anxious today. She says that she received a phone call on Monday where she got to know that her ex-girlfriend sent all her clothes to her brother's home, that actually is the patient's home too. Reportedly the patient got to know that her ex-girlfriend was looking for a bed frame and this made her angry and anxious because she thinks her ex-girlfriend is getting a new partner. She feels betrayed, angry, depressed, and has had urges to cut herself. She says that she found fabiola nearby and she handed them to the nurses because she knows that she cannot do that to herself (hurt herself with the fabiola), but she has had problems with anxiety. She denied suicidal ideation, denied auditory or visual hallucinations, denied homicidal ideation. OBJECTIVE: Patient was seen dressed in hospital clothes, pleasant, cooperative, with good eye contact and good rapport. Her mood is less depressed but her levels of anxiety are high. Her affect is congruent with mood, she is not irritable. Her speech is louder than it was last week but it is coherent and spontaneous. Her thought process is intact, her thought content is coherent. She denies suicidal or homicidal ideation, denies auditory and visual hallucinations, denies obsessions or compulsions, and denies thought delusions. Her attention and concentration are fair, her recent and remote memory are intact. Her judgment is still poor and her insight is slightly improving. Computation is fair and abstract thinking is fair. Impulse control is good. ASSESSMENT: Patient is more anxious than she was last week but she has been able to control herself, she has not cut herself, she has not had angry outbursts in the inpatient mental health unit. She is having problems processing her loss, and she is aware of it and she knows that she has to work on that and, for that reason, she has been attending all groups. If patient continues to improve, discharge could be considered over the next couple of days. PLAN: The patient should continue on the same medications, but today Atarax was increased to 100 mg by mouth three times a day and Klonopin is being administered in a different way, instead of 0.5 mg by mouth three times a day, she is receiving 1 mg in the morning and 0.5 mg at night. Will continue to monitor closely and if she becomes less anxious and is able to handle and cope with her anxiety in a different way, she could be discharged maybe around Monday or of this week. Will followup. HERO
[2016-08-22] MEDS: traZODone 50 MG TAB PO PRN (22:56)
[2016-08-23] MEDS: ACETAMINOPHEN TAB 650MG DOSE (2X325MG) PO PRN ×2 (05:04→20:08)
[2016-08-23 06:26] VITALS: BP 134/80
[2016-08-23 08:53] VITALS: BP 130/79
[2016-08-23] MEDS: OMEPRAZOLE 20 MG CAP PO SCH (08:56)
[2016-08-23] MEDS: SERTRALINE HCL 50 MG TAB PO SCH (08:56)
[2016-08-23] MEDS: GABAPENTIN 400 MG CAP PO SCH ×3 (08:56→20:07)
[2016-08-23] MEDS: clonazePAM 1 MG TAB PO SCH (08:56)
[2016-08-23] MEDS: MELOXICAM (MOBIC) 7.5 MG TAB PO SCH ×2 (08:56→20:07)
[2016-08-23] MEDS: MONTELUKAST 10 MG TAB PO SCH (08:56)
[2016-08-23] MEDS: ADVAIR DISKUS 500/50 INH PWD INH SCH ×2 (08:56→20:07)
[2016-08-23] MEDS: METOPROLOL SUCC (TopROL XL) 50MG **XL** TAB PO SCH (08:56)
[2016-08-23] MEDS: NALTREXONE 50 MG TAB PO SCH (08:56)
[2016-08-23] MEDS: MULTIVITAMINS/MINERALS THERAP 1 TAB PO SCH (08:56)
[2016-08-23] MEDS: FOLIC ACID 1 MG TAB PO SCH (08:56)
[2016-08-23] MEDS: LIDOCAINE 5% (LIDODERM) PATCH TD PRN (08:57)
[2016-08-23] MEDS: NICOTINE POLACRILEX 2 MG GUM PO PRN ×3 (08:57→18:16)
[2016-08-23] MEDS: BACITRACIN OINT 30GM TOP SCH ×2 (08:59→20:03)
[2016-08-23] MEDS: OLANZapine 5 MG TAB PO PRN ×2 (10:27→18:15)
[2016-08-23] MEDS: hydrOXYzine 25 MG TAB PO PRN ×2 (15:41→21:46)
[2016-08-23 18:00] VITALS: BP 114/53
[2016-08-23] MEDS: **NOTE PATIENT COMMENT** MISC XX SCH ×2 (20:07→20:08)
[2016-08-23] MEDS: clonazePAM 0.5 MG TAB PO SCH (20:07)
[2016-08-23] MEDS: traZODone 50 MG TAB PO PRN (20:10)
[2016-08-24] MEDS: ACETAMINOPHEN TAB 650MG DOSE (2X325MG) PO PRN (06:04)
[2016-08-24 06:28] VITALS: BP 127/63
[2016-08-24] MEDS: ALBUTEROL 90 MCG/ACT 8GM HFA INHALER INH PRN (07:37)
[2016-08-24] MEDS: BACITRACIN OINT 30GM TOP SCH (08:00)
[2016-08-24] MEDS: MULTIVITAMINS/MINERALS THERAP 1 TAB PO SCH (08:06)
[2016-08-24] MEDS: SERTRALINE HCL 50 MG TAB PO SCH (08:06)
[2016-08-24] MEDS: ADVAIR DISKUS 500/50 INH PWD INH SCH (08:06)
[2016-08-24] MEDS: GABAPENTIN 400 MG CAP PO SCH (08:06)
[2016-08-24] MEDS: FOLIC ACID 1 MG TAB PO SCH (08:06)
[2016-08-24] MEDS: OMEPRAZOLE 20 MG CAP PO SCH (08:06)
[2016-08-24 08:07] VITALS: BP 127/63
[2016-08-24] MEDS: MONTELUKAST 10 MG TAB PO SCH (08:07)
[2016-08-24] MEDS: clonazePAM 1 MG TAB PO SCH (08:07)
[2016-08-24] MEDS: METOPROLOL SUCC (TopROL XL) 50MG **XL** TAB PO SCH (08:07)
[2016-08-24] MEDS: NICOTINE POLACRILEX 2 MG GUM PO PRN ×2 (08:07→13:29)
[2016-08-24] MEDS: OLANZapine 5 MG TAB PO PRN (08:07)
[2016-08-24] MEDS: MELOXICAM (MOBIC) 7.5 MG TAB PO SCH (08:07)
[2016-08-24] MEDS: NALTREXONE 50 MG TAB PO SCH (08:07)
[2016-08-24] MEDS: LIDOCAINE 5% (LIDODERM) PATCH TD PRN (08:08)
[2016-08-24] MEDS: hydrOXYzine 25 MG TAB PO PRN (09:21)
--- NOTE | 2016-08-24 09:42 | IPN ---
DATE: 08/23/2016 30-year-old female with history of borderline personality disorder who was admitted for having suicidal thoughts after break up with ex-girlfriend. The break up took place more than one month ago but the patient has not been able to recover from that. She has a long standing history of psychiatric problems and psychiatric admissions to the inpatient mental health unit. SUBJECTIVE: The patient reports today that she feels much better, she feels less angry and less frustrated, but admits that still thinks a lot about her ex-girlfriend and cannot let go about all what she has to go through since her break up. She understands that it does not do any good to her to keep thinking about all of this but she says that she cannot control it. She describes her mood as less depressed and less anxious, has been sleeping well, has good appetite and is looking forward to go back home. Denies suicidal or homicidal ideation, denies psychosis. OBJECTIVE: Patient was seen dressed in personal clothes mixed with hospital clothes with good attitude, rapport and good eye contact. 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 Her speech was spontaneous and fluent. Thought process is intact, thought content is redundant about anxiety issues related to her ex-girlfriend and about going back home. Regarding abnormal or psychotic thoughts, she denies suicidal or homicidal ideation, denies auditory or visual hallucinations and denies thought delusions. Her attention and concentration are fair. Her recent and remote memory are intact. Abstraction and computation are fair. Insight and judgment are improving. Her impulse control is good and has been good through this hospitalization. ASSESSMENT: Patient has been able to control her anxiety which is much less than yesterday. She was seen today in a brighter mood, has plans for the future, she wants to get a job, wants to get a dog because she loves dogs and they are therapeutic for her. She seems to be a little bit more insightful about the issues that led to the break up with her ex-girlfriend. She has had good response to medications and if things continue to go well during the rest of the day and tonight, she will be discharged tomorrow on the same medications that she has been on at the inpatient mental health unit. Will monitor closely and will followup. HERO
[2016-08-24] MEDS ORDERED: NICO2GUM62 PO (11:05)
[2016-08-24] MEDS ORDERED: OLAN5TAB PO (11:05)
[2016-08-24] MEDS ORDERED: TRAZO50TA PO (11:05)
[2016-08-24] MEDS ORDERED: SERT50TA PO (11:05)
[2016-08-24] MEDS ORDERED: NALT50TA4 PO (11:05)
[2016-08-24] MEDS ORDERED: GABA-283 PO (11:05)
[2016-08-24] MEDS ORDERED: OLANZapine 5 MG TAB PO SCH (21:00)
--- NOTE | 2016-08-25 20:46 | DSES ---
DATE OF ADMISSION: 08/13/2016 DATE OF DISCHARGE: 08/24/2016 DISCHARGE DIAGNOSES: 1. Borderline personality disorder. 2. Unspecified bipolar disorder. 3. Substance use disorder. REASON FOR ADMISSION: Patient reported that she was feeling increasing depressed and suicidal after a breakup with girlfriend for more than one month ago. She reported that she has several problems with the ex-girlfriends son and the ex-girlfriend sided with her children. There relationship ended approximately 1 1/2 or 2 months ago. Patient can not get over it and can not stop thinking about it and got increasingly depressed and had urgency to hurt herself, to kill herself, or cut herself. Patient has a long standing history of psychiatric admission at the inpatient mental health unit and has been diagnosed with psychiatric problems for several years. CONSULTANTS INVOLVED: None. TREATMENT AND PROGRESS ON THE UNIT: The patient had a good response to medications. She was on Sertraline 150 mg by mouth daily for depression and anxiety, trazodone 150 mg by mouth at night as needed for insomnia, clonazepam 1 mg by mouth every morning and clonazepam 0.5 mg by mouth every evening, she has Atarax 1 tablet by mouth three times a day as needed for anxiety or agitation and also naltrexone or Revia 50 mg by mouth daily for alcohol withdrawals. She also continues her medication that were Ventolin, Enbrel, meloxicam, metoprolol, montelukast, omeprazole, Advair and she accepted to have nicotine 2 mg by mouth every 2 hours as needed for smoking cessation. Patient had a good response to medications including Zyprexa 5 mg every 4 hours as needed for anxiety or agitation. The reason that she was started on Zyprexa every 4 hours was because she was extremely anxious and when she becomes anxious she can become aggressive and angry. She has symptoms of bipolarities that overlap with her symptoms of borderline personality disorder and Zyprexa was used to control both the impulsivity of borderline bipolar disorder, but she is already overweight. This medication was left on discharge. There will be 10 mg by mouth twice a day with indications for her to exercise and have a healthy diet to avoid becoming overweight. Over the weekend she became frustrated because she received several phone calls from friends and relatives that kept updating her about her ex-girlfriends life. She thought that because her ex-girlfriend was looking for a bed frame it was because she wanted to bring somebody else to liver with her. But certainly her ex-girlfriend sent all of her belongings to her brothers house which is where the patient lives. This really upset her and she became more depressed but since Monday, she has started improving, she kept attending groups. Today, upon discharge, she was stable. She was not a danger to self or others. MENTAL STATUS EXAMINATION ON DISCHARGE: Patient is a 30-year-old female who is alert, oriented, times three, cooperative, pleasant and calm. Speech is normal, coherent, spontaneous. Language skills are fair. Thought process is intact. Thought content is coherent. Concentration is fair. Description of associations are good. Description of abnormal or psychotic thoughts, she is not responding to internal stimuli, denies homicidal or suicidal ideation and denies auditory or visual hallucinations. Her judgment and insight have improved, she says that if she finds her ex-girlfriend in her town she will avoid her as much as she can because she knows that if she talks to her she could lose her temper. She is oriented times three. Her recent and remote memory is fair. Attention and concentration are good. Language is normal. Fund of knowledge is fair. Mood, "I am excited, I am nervous but I am happy." Affect congruent to mood, full range, appropriate. MEDICATIONS ON DISCHARGE: As described above. PLAN: Followup arrangements. She is to followup at [place] at the outpatient substance abuse treatment to help with drinking. Patient was discharged on Revia and she is going to the chemical dependency clinic, mentioned previously to help herself to quit drinking, she was discharge with Revia because this reduces the cravings for the alcohol. She will followup with [facility] for her mental health appointment. Upon discharge she was stable, she was happy, she was not a danger to self or others.
== END 2016-08-24 14:24 | disposition home or self-care (01) | DRG 752 ==
LOC: M ED 04:40 → M ED INP 06:51 → M PSY 08:43
PROVIDERS: ADMIT Psychiatry & Neurology Psychiatry; ATTEND Psychiatry & Neurology Psychiatry
DX: F60.3 Borderline personality disorder (principal); I10 Essential (primary) hypertension; F31.9 Bipolar disorder, unspecified; Z88.2 Allergy status to sulfonamides; Z88.8 Allergy status to other drugs, medicaments and biological substances; F17.210 Nicotine dependence, cigarettes, uncomplicated; J45.909 Unspecified asthma, uncomplicated; K21.9 Gastro-esophageal reflux disease without esophagitis; M79.7 Fibromyalgia; M19.90 Unspecified osteoarthritis, unspecified site; F41.9 Anxiety disorder, unspecified; K58.9 Irritable bowel syndrome, unspecified; F10.10 Alcohol abuse, uncomplicated; Z62.810 Personal history of physical and sexual abuse in childhood; F12.20 Cannabis dependence, uncomplicated